=== PATIENT | female | born 1995 | race Caucasian/White ===

== ENCOUNTER 2017-07-10 15:12 | Inpatient (IN) | payer OTHER ==
[2017-07-10 15:43] VITALS: BMI 21.4
--- NOTE | 2017-07-10 17:41 | HP ---
COWS - Scale Resting Pulse: 0= [place] 80 or Below Sweatin= Chills/Flushing Restless Observation: 3= Extraneous Movement Pupil Size: 0= Normal to Room Light Bone or Joint Aches: 2= Severe Diffuse Aches Runny Nose/ Eye Tearin= Runny Nose/Eyes GI Upset > 30mins: 2= Nausea/Diarrhea Tremor Observation: 2= Slight Tremor Visible Yawning Observation: 1= 1-2x During Session Anxiety or Irritability: 2=Irritable/Anxious Goose Flesh Skin: 0=Smooth Skin COWS Score: 15 Admission LOCATED WITHIN [facility] Chief Complaint: WITHDRAWAL SX Allergies/Adverse Reactions: Allergies Allergy/AdvReac Type Severity Reaction Status Date / Time No Known Allergies Allergy Verified 07/10/17 16:05 History of Present Illness: 22 YEARS OLD FEMALE WITH LONG HISTORY OF HEROIN NICOTINE DEPENDENCE HAS DEPRESSION IS ADMITTED TO DETOX Exam Limitations: No Limitations - Ebola screening Have you traveled outside of the country in the last 21 days: No Have you had contact with anyone from an Ebola affected area: No Have you been sick,other than usual withdrawal symptoms: No Do you have a fever: No - Review of Systems Constitutional: Loss of Appetite, Changes in sleep, Unintentional Wgt. Loss, Unexplained wgt Loss EENT: reports: No Symptoms Reported Respiratory: reports: No Symptoms reported Cardiac: reports: No Symptoms Reported GI: reports: Nausea, Poor Appetite, Poor Fluid Intake, Abdominal cramping : reports: No Symptoms Reported Musculoskeletal: reports: Back Pain, Joint Pain, Muscle Pain, Neck Pain Integumentary: reports: No Symptoms Reported Neuro: reports: Tremors Endocrine: reports: No Symptoms Reported Hematology: reports: No Symptoms Reported Psychiatric: reports: Judgement Intact, Orientated x3 Other Systems: Reviewed and Negative Patient History - Patient Medical History Hx Anemia: No Hx Asthma: No Hx Chronic Obstructive Pulmonary Disease (COPD): No Hx Cancer: No Hx Cardiac Disorders: No Hx Congestive Heart Failure: No Hx Hypertension: No Hx Hypercholesterolemia: No Hx Pacemaker: No HX Cerebrovascular Accident: No Hx Seizures: No Hx Dementia: No Hx Diabetes: No Hx Gastrointestinal Disorders: No Hx Liver Disease: No Hx Genitourinary Disorders: No Hx Sexually Transmitted Disorders: No Hx Renal Disease (ESRD): No Hx Thyroid Disease: No Hx Human Immunodeficiency Virus (HIV): No Hx Hepatitis C: No Hx Depression: Yes Hx Suicide Attempt: No Hx Bipolar Disorder: No Hx Schizophrenia: No - Patient Surgical History Past Surgical History: Yes Hx Neurologic Surgery: No Hx Cataract Extraction: No Hx Cardiac Surgery: No Hx Lung Surgery: No Hx Breast Surgery: No Hx Breast Biopsy: No Hx Abdominal Surgery: No Hx Appendectomy: No Hx Cholecystectomy: No Hx Genitourinary Surgery: No Hx Section: No Hx Orthopedic Surgery: No Hx Hysterectomy: No Other Surgical History: tonsilectomy Anesthesia Reaction: No - PPD History Previous Implant?: Yes Documented Results: Negative w/o proof Implanted On Prior [facility] Admission?: No PPD to be Administered?: Yes - Reproductive History Patient is a Female of Child Bearing Age (11 -55 yrs old): Yes Last Menstrual Period: 07/10/16 Patient : No - Smoking Cessation Smoking history: Current every day smoker Have you smoked in the past 12 months: Yes Aproximately how many cigarettes per day: 20 Cigars Per Day: 0 Hx Chewing Tobacco Use: No Initiated information on smoking cessation: Yes 'Breaking Loose' booklet given: 07/10/17 - Substance & Tx. History Hx Alcohol Use: No Hx Substance Use: Yes Substance Use Type: Opiates Hx Substance Use Treatment: Yes (04/2017 [facility]) - Substances Abused Heroin Route: Injection Frequency: Daily Amount used: 10 bags Age of first use: 18 Date of Last Use: 07/10/17 Family Disease History - Family Disease History Family History: Unremarkable Admission Physical Exam BHS - Vital Signs Vital Signs: Vital Signs - 24 hr 07/10/17 15:36 Temperature 96.8 F L Pulse Rate 80 Respiratory 18 Rate Blood Pressure 104/62 - Physical General Appearance: Yes: Appropriately Dressed, Mild Distress, Thin, Tremorous, Irritable, Sweating, Anxious HEENTM: Yes: Hearing grossly Normal, Normal ENT Inspection, Normocephalic, Normal Voice Respiratory: Yes: Chest Non-Tender, Lungs Clear, Normal Breath Sounds, No Respiratory Distress, No Accessory Muscle Use Neck: Yes: Supple, Trachea in good position Breast: Yes: Breasts Symetrical Cardiology: Yes: Regular Rhythm, Regular Rate, S1, S2 Abdominal: Yes: Non Tender, Soft, Increased Bowel Sounds Genitourinary: Yes: Within Normal Limits Back: Yes: Normal Inspection Musculoskeletal: Yes: full range of Motion, Gait Steady, Back pain, Muscle Pain Extremities: Yes: Normal Inspection (OLD PUNCTURE RAMIREZ RIGHT ARM), Normal Range of Motion, Non-Tender, Tremors Neurological: Yes: Fully Oriented, Alert, Motor Strength 5/5, Normal Response, Depressed Affect Integumentary: Yes: Warm Lymphatic: Yes: Within Normal Limits - Diagnostic (1) Opioid dependence with withdrawal Current Visit: Yes Status: Acute (2) Weight loss Current Visit: Yes Status: Acute (3) Nicotine dependence Current Visit: Yes Status: Acute Qualifiers: Nicotine product type: cigarettes Substance use status: in withdrawal Qualified Code(s): F17.213 - Nicotine dependence, cigarettes, with withdrawal (4) Depression (emotion) Current Visit: Yes Status: Suspected Qualifiers: Depression Type: dysthymia Qualified Code(s): F34.1 - Dysthymic disorder Cleared for Admission [facility] - Detox or Rehab [facility] Level of Care: Medically Managed Detox Regimen/Protocol: Methadone [facility] Breath Alcohol Content Breath Alcohol Content: 0 Urine Pregancy Test - Result Urine Test Results: Negative- NO Line Present Urine Drug Screen - Results Drug Screen Negative: No Urine Drug Screen Results: OPI-Opiates
[2017-07-10] MEDS ORDERED: NICOTINE POLACRILEX 4 MG GUM BC PRN (17:43)
[2017-07-10] MEDS ORDERED: MENTHOL/PHENOL 1 EACH UD MM PRN (17:43)
[2017-07-10] MEDS ORDERED: LOPERAMIDE HCL 2 MG CAPSULE PO PRN (17:43)
[2017-07-10] MEDS ORDERED: IBUPROFEN 400 MG TABLET (FP) PO PRN (17:43)
[2017-07-10] MEDS ORDERED: MAGNESIUM CITRATE 300 ML BOTTLE PO PRN (17:43)
[2017-07-10] MEDS ORDERED: guaiFENesin/D-METHORPHAN HB 10 ML UNIT-DOSE CUPS PO PRN (17:43)
[2017-07-10] MEDS ORDERED: ACETAMINOPHEN 325 MG TABLET (FP) PO PRN (17:43)
[2017-07-10] MEDS ORDERED: P-EPHED 60MG/TRIPROLIDI 2.5MG TABLET PO PRN (17:43)
[2017-07-10] MEDS ORDERED: MAG HYDROX/AL HYDROX/SIMETH 30 ML UNIT-DOSE CUP PO PRN (17:43)
[2017-07-10] MEDS ORDERED: MAGNESIUM HYDROX 2400MG/30ML ORAL SUSPENSION 30 ML CUP PO PRN (17:43)
[2017-07-10] MEDS: diazePAM 5 MG TABLET PO PRN (19:57)
[2017-07-10] MEDS ORDERED: METHADONE HCL 10 MG TABLET (FOR DETOX USE ONLY) PO ONE ×2 (20:00→23:00)
[2017-07-10] MEDS: THIAMINE HCL 100 MG TABLET (FP) PO SCH (22:13)
[2017-07-10 23:47] LABS: URINE APPEARANCE CLOUDY; URINE BILIRUBIN NEGATIVE (NEGATIVE); URINE BLOOD NEGATIVE (NEGATIVE); URINE COLOR YELLOW; URINE GLUCOSE (UA) NEGATIVE (NEGATIVE); URINE KETONE NEGATIVE (NEGATIVE); URINE NITRITE NEGATIVE (NEGATIVE); URINE PROTEIN NEGATIVE (NEGATIVE); URINE UROBILINOGEN NEGATIVE mg/dL (0.2-1.0)
[2017-07-10 23:49] LABS: URINE LEUK ESTERASE 1+ (NEGATIVE)
[2017-07-11 01:18] LABS: EPI CELLS MODERATE /HPF (FEW); URINE BACTERIA RARE /hpf (NONE SEEN); URINE MUCUS RARE
--- NOTE | 2017-07-11 08:06 | CONSULT ---
[facility] Psychiatric Consult - Data Date of interview: 07/11/17 Admission source: [facility] Identifying data: This is 22 years old female with no psychiatric hospitalization history intoxicated with: Opiopids and Nicotine Substance Abuse History: Smoking history: Current every day smoker. Have you smoked in the past 12 months: Yes. Aproximately how many cigarettes per day: 20. Cigars Per Day: 0. Hx Chewing Tobacco Use: No. Initiated information on smoking cessation: Yes. 'Breaking Loose' booklet given: 07/10/17. - Substance & Tx. History. Hx Alcohol Use: No. Hx Substance Use: Yes. Substance Use Type : Opiates. Hx Substance Use Treatment: Yes (04/2017 [facility]). - Substances Abused. Heroin. Route: Injection. Frequency: Daily. Amount used: 10 bags. Age of first use: 18. Date of Last Use: 07/10/17 Medical History: Weight loss Psychiatric History: Patient reports unclear history of depression, denies suicidal history, reports taking in the past : Wellbutrin, Lamictal, Prozac, Gabapentine, reports did not taking those medications at this time, refusing pharmacological intervention Physical/Sexual Abuse/Trauma History: Denies Additional Comment: Observation. Detox Unit Cart Protocol Mental Status Exam - Mental Status Exam Alert and Oriented to: Person Cognitive Function: Fair Patient Appearance: Unkempt Mood: Apprehensive Affect: Mood Congruent Patient Behavior: Cooperative Voice Loudness: Mildly Soft/Quiet Thought Process: Goal Oriented Thought Disorder: Being Controlled Hallucinations: Denies Suicidal Ideation: Denies Homicidal Ideation: Denies Insight/Judgement: Fair Sleep: Difficulty falling asleep Appetite: Weight loss Muscle strength/Tone: Normal Gait/Station: Normal Additional Comments: Observation. Detox Unit Cart Protocol Psychiatric Findings - Problem List ([place] 1, 2,3) (1) Drug-induced mood disorder Current Visit: Yes Status: Acute (2) Nicotine dependence Current Visit: Yes Status: Acute Qualifiers: Nicotine product type: cigarettes Substance use status: in withdrawal Qualified Code(s): F17.213 - Nicotine dependence, cigarettes, with withdrawal (3) Opioid dependence with withdrawal Current Visit: Yes Status: Acute - Initial Treatment Plan Initial Treatment Plan: Observation. Detox Unit Cart Protocol
[2017-07-11 09:46] LABS: ALBUMIN 3.2 g/dl (3.4-5.0); ANION GAP 4 (8-16); BLOOD UREA NITROGEN 10 mg/dL (7-18); CHLORIDE 107 mmol/L (98-107); CO2 29 mmol/L (21-32); GLUCOSE,RANDOM 86 mg/dL (74-106); POTASSIUM 4.3 mmol/L (3.5-5.1); SGOT/AST 10 U/L (15-37); SGPT/ALT 15 U/L (12-78); SODIUM 140 mmol/L (136-145)
[2017-07-11 09:48] LABS: ALK PHOS 92 U/L (45-117); BILIRUBIN,TOTAL 0.3 mg/dL (0.2-1.0); CALCIUM 8.8 mg/dL (8.5-10.1); CREATININE 0.7 mg/dL (0.55-1.02); TOT PROT 6.3 g/dl (6.4-8.2)
[2017-07-11] MEDS ORDERED: METHADONE HCL 10 MG TABLET (FOR DETOX USE ONLY) PO ONE (10:00)
[2017-07-11] MEDS: PRENATAL VITAMINS W/ FOLIC ACID TABLET (FP) PO SCH (10:15)
[2017-07-11] MEDS: NICOTINE 21 MG/24 HOURS TOPICAL PATCH TD SCH (10:17)
[2017-07-11 10:21] LABS: HEMATOCRIT 40.8 % (32.4-45.2); HEMOGLOBIN 13.1 GM/dL (10.7-15.3); MCH 28.5 pg (25.7-33.7); MCHC 32.2 g/dl (32.0-36.0); MEAN CELL VOLUME 88.3 fl (80-96); MEAN PLT VOLUME 7.8 fl (7.5-11.1); PLATELET COUNT 238 K/MM3 (134-434); RBC 4.62 M/mm3 (3.60-5.2); RDW 13.6 % (11.6-15.6); WHITE BLOOD COUNT 7.9 K/mm3 (4.0-10.0)
--- NOTE | 2017-07-11 10:36 | PN ---
BHS COWS - Scale Resting Pulse: 0= [place] 80 or Below Sweatin=Flushed/Facial Moisture Restless Observation: 1= Difficult to Sit Still Pupil Size: 0= Normal to Room Light Bone or Joint Aches: 2= Severe Diffuse Aches Runny Nose/ Eye Tearin= Runny Nose/Eyes GI Upset > 30mins: 1= Stomach Cramp Tremor Observation of Outstretched Hands: 2= Slight Tremor Visible Yawning Observation: 2= >3x During Session Anxiety or Irritability: 2=Irritable/Anxious Goose Flesh Skin: 0=Smooth Skin COWS Score: 14 BHS Progress Note (SOAP) Subjective: interrupted sleep agitation sweats body aches irritable Objective: 07/11/17 10:35 Vital Signs Temperature 97.7 F 07/11/17 04:00 Pulse Rate 55 L 07/11/17 04:00 Respiratory Rate 18 07/11/17 04:00 Blood Pressure 101/67 07/11/17 04:00 O2 Sat by Pulse Oximetry (%) Laboratory Tests 07/10/17 07/11/17 07/11/17 Unknown 07:00 07:00 WBC 7.9 RBC 4.62 Hgb 13.1 Hct 40.8 MCV 88.3 MCH 28.5 MCHC 32.2 RDW 13.6 Plt Count 238 MPV 7.8 Sodium 140 Potassium 4.3 Chloride 107 Carbon Dioxide 29 Anion Gap 4 L BUN 10 Creatinine 0.7 Creat Clearance w eGFR > 60 Random Glucose 86 Calcium 8.8 Total Bilirubin 0.3 AST 10 L ALT 15 Alkaline Phosphatase 92 Total Protein 6.3 L Albumin 3.2 L Urine Color Yellow Urine Appearance Cloudy Urine pH 7.0 Ur Specific [place] 1.011 Urine Protein Negative Urine Glucose (UA) Negative Urine Ketones Negative Urine Blood Negative Urine Nitrite Negative Urine Bilirubin Negative Urine Urobilinogen Negative Urine WBC (Auto) 17 Urine RBC (Auto) <1 Ur Epithelial Cells Moderate Urine Bacteria Rare Urine Mucus Rare aaox3 ambulating no acute distress Assessment: 07/11/17 10:36 withdrawal sx Plan: continue detox increase fluids
--- NOTE | 2017-07-11 12:34 | EKG ---
Test Reason : Blood Pressure : / mmHG Vent. Rate : 061 BPM Atrial Rate : 061 BPM P-R Int : 132 ms QRS Dur : 082 ms QT Int : 402 ms P-R-T Axes : 043 048 043 degrees QTc Int : 404 ms NORMAL SINUS RHYTHM WITH SINUS ARRHYTHMIA NORMAL ECG NO PREVIOUS ECGS AVAILABLE Confirmed by LAYO LUNA, ROSE ([id number]) on 07/11/2017 12:34:19 PM Referred By: Payal Cortez Confirmed By:ROSE VASQUES MD
--- NOTE | 2017-07-11 12:35 | EKG ---
Test Reason : Blood Pressure : / mmHG Vent. Rate : 063 BPM Atrial Rate : 063 BPM P-R Int : 148 ms QRS Dur : 074 ms QT Int : 400 ms P-R-T Axes : 038 052 039 degrees QTc Int : 409 ms NORMAL SINUS RHYTHM WITH SINUS ARRHYTHMIA LOW VOLTAGE QRS BORDERLINE ECG WHEN COMPARED WITH ECG OF 10-JUL-2017 19:46, NO SIGNIFICANT CHANGE WAS FOUND Confirmed by LAYO LUNA, ROSE ([id number]) on 07/11/2017 12:34:24 PM Referred By: Payal Cortez Confirmed By:ROSE VASQUES MD
[2017-07-11] MEDS: diazePAM 5 MG TABLET PO PRN ×2 (17:17→22:16)
[2017-07-11] MEDS: THIAMINE HCL 100 MG TABLET (FP) PO SCH (22:16)
[2017-07-12] MEDS ORDERED: METHADONE HCL 5 MG TABLET (FOR DETOX USE ONLY) PO ONE (10:00)
[2017-07-12] MEDS: PRENATAL VITAMINS W/ FOLIC ACID TABLET (FP) PO SCH (10:13)
[2017-07-12] MEDS: NICOTINE 21 MG/24 HOURS TOPICAL PATCH TD SCH (10:13)
[2017-07-12] MEDS: diazePAM 5 MG TABLET PO PRN ×3 (10:15→22:05)
--- NOTE | 2017-07-12 10:35 | PN ---
S COWS - Scale Resting Pulse: 0= [place] 80 or Below Sweatin=Flushed/Facial Moisture Restless Observation: 1= Difficult to Sit Still Pupil Size: 0= Normal to Room Light Bone or Joint Aches: 2= Severe Diffuse Aches Runny Nose/ Eye Tearin= Runny Nose/Eyes GI Upset > 30mins: 0= None Tremor Observation of Outstretched Hands: 1= Tremor [place], Not Seen Yawning Observation: 2= >3x During Session Anxiety or Irritability: 2=Irritable/Anxious Goose Flesh Skin: 0=Smooth Skin COWS Score: 12 S Progress Note (SOAP) Subjective: anxiety sweats chills body aches Objective: 07/12/17 10:33 Vital Signs Temperature 97.0 F L 07/12/17 09:40 Pulse Rate 70 07/12/17 09:40 Respiratory Rate 16 07/12/17 09:40 Blood Pressure 103/57 07/12/17 09:40 O2 Sat by Pulse Oximetry (%) Laboratory Tests 07/10/17 07/10/17 07/11/17 07:00 Unknown 07:00 WBC RBC Hgb Hct MCV MCH MCHC RDW Plt Count MPV Sodium Potassium Chloride Carbon Dioxide Anion Gap BUN Creatinine Creat Clearance w eGFR Random Glucose Calcium Total Bilirubin AST ALT Alkaline Phosphatase Total Protein Albumin Urine Color Yellow Urine Appearance Cloudy Urine pH 7.0 Ur Specific [place] 1.011 Urine Protein Negative Urine Glucose (UA) Negative Urine Ketones Negative Urine Blood Negative Urine Nitrite Negative Urine Bilirubin Negative Urine Urobilinogen Negative Ur Leukocyte Esterase 1+ H Urine WBC (Auto) 17 Urine RBC (Auto) <1 Ur Epithelial Cells Moderate Urine Bacteria Rare Urine Mucus Rare RPR Titer Hepatitis C Antibody <0.1 HIV 1&2 Antibody Screen Negative HIV P24 Antigen Negative 07/11/17 07/11/17 07/11/17 07:00 07:00 07:00 WBC 7.9 RBC 4.62 Hgb 13.1 Hct 40.8 MCV 88.3 MCH 28.5 MCHC 32.2 RDW 13.6 Plt Count 238 MPV 7.8 Sodium 140 Potassium 4.3 Chloride 107 Carbon Dioxide 29 Anion Gap 4 L BUN 10 Creatinine 0.7 Creat Clearance w eGFR > 60 Random Glucose 86 Calcium 8.8 Total Bilirubin 0.3 AST 10 L ALT 15 Alkaline Phosphatase 92 Total Protein 6.3 L Albumin 3.2 L Urine Color Urine Appearance Urine pH Ur Specific [place] Urine Protein Urine Glucose (UA) Urine Ketones Urine Blood Urine Nitrite Urine Bilirubin Urine Urobilinogen Ur Leukocyte Esterase Urine WBC (Auto) Urine RBC (Auto) Ur Epithelial Cells Urine Bacteria Urine Mucus RPR Titer Nonreactive Hepatitis C Antibody HIV 1&2 Antibody Screen HIV P24 Antigen aaox3 ambulating no acute distress Assessment: 07/12/17 10:34 withdrawal sx Plan: continue detox increase fluids
[2017-07-12] MEDS: THIAMINE HCL 100 MG TABLET (FP) PO SCH (22:05)
[2017-07-13] MEDS ORDERED: METHADONE HCL 5 MG TABLET (FOR DETOX USE ONLY) PO ONE (10:00)
[2017-07-13] MEDS: diazePAM 5 MG TABLET PO PRN ×2 (10:32→17:51)
[2017-07-13] MEDS: PRENATAL VITAMINS W/ FOLIC ACID TABLET (FP) PO SCH (10:32)
[2017-07-13] MEDS: NICOTINE 21 MG/24 HOURS TOPICAL PATCH TD SCH (10:33)
--- NOTE | 2017-07-13 11:52 | PN ---
BHS Progress Note (SOAP) Subjective: ALERT,IRRITABLE,ANXIOUS,INTERRUPTED SLEEP,PAIN IN THE BODY Objective: 07/13/17 11:51 Vital Signs Temperature 96 F L 07/13/17 10:18 Pulse Rate 78 07/13/17 10:18 Respiratory Rate 18 07/13/17 10:18 Blood Pressure 103/63 07/13/17 10:18 O2 Sat by Pulse Oximetry (%) Assessment: 07/13/17 11:51 WITHDRAWAL SYMPTOM Plan: CONTINUE DETOX
[2017-07-13] MEDS: THIAMINE HCL 100 MG TABLET (FP) PO SCH (22:28)
[2017-07-14] MEDS ORDERED: METHADONE HCL 10 MG TABLET (FOR DETOX USE ONLY) PO ONE (10:00)
[2017-07-14] MEDS: PRENATAL VITAMINS W/ FOLIC ACID TABLET (FP) PO SCH (10:19)
[2017-07-14] MEDS: NICOTINE 21 MG/24 HOURS TOPICAL PATCH TD SCH (10:19)
--- NOTE | 2017-07-14 12:44 | PN ---
BHS Progress Note (SOAP) Subjective: general body ache irritable unable to sleep throughout the night Objective: 07/14/17 12:43 Vital Signs Temperature 96.6 F L 07/14/17 10:00 Pulse Rate 90 07/14/17 10:00 Respiratory Rate 18 07/14/17 10:00 Blood Pressure 114/64 07/14/17 10:00 O2 Sat by Pulse Oximetry (%) Laboratory Last Values WBC 7.9 K/mm3 (4.0-10.0) 07/11/17 07:00 RBC 4.62 M/mm3 (3.60-5.2) 07/11/17 07:00 Hgb 13.1 GM/dL (10.7-15.3) 07/11/17 07:00 Hct 40.8 % (32.4-45.2) 07/11/17 07:00 MCV 88.3 fl (80-96) 07/11/17 07:00 MCH 28.5 pg (25.7-33.7) 07/11/17 07:00 MCHC 32.2 g/dl (32.0-36.0) 07/11/17 07:00 RDW 13.6 % (11.6-15.6) 07/11/17 07:00 Plt Count 238 K/MM3 (134-434) 07/11/17 07:00 MPV 7.8 fl (7.5-11.1) 07/11/17 07:00 Sodium 140 mmol/L (136-145) 07/11/17 07:00 Potassium 4.3 mmol/L (3.5-5.1) 07/11/17 07:00 Chloride 107 mmol/L (98-107) 07/11/17 07:00 Carbon Dioxide 29 mmol/L (21-32) 07/11/17 07:00 Anion Gap 4 (8-16) L 07/11/17 07:00 BUN 10 mg/dL (7-18) 07/11/17 07:00 Creatinine 0.7 mg/dL (0.55-1.02) 07/11/17 07:00 Creat Clearance w eGFR > 60 (>60) 07/11/17 07:00 Random Glucose 86 mg/dL (74-106) 07/11/17 07:00 Calcium 8.8 mg/dL (8.5-10.1) 07/11/17 07:00 Total Bilirubin 0.3 mg/dL (0.2-1.0) 07/11/17 07:00 AST 10 U/L (15-37) L 07/11/17 07:00 ALT 15 U/L (12-78) 07/11/17 07:00 Alkaline Phosphatase 92 U/L (45-117) 07/11/17 07:00 Total Protein 6.3 g/dl (6.4-8.2) L 07/11/17 07:00 Albumin 3.2 g/dl (3.4-5.0) L 07/11/17 07:00 Urine Color Yellow 07/10/17 Unknown Urine Appearance Cloudy 07/10/17 Unknown Urine pH 7.0 (5.0-8.0) 07/10/17 Unknown Ur Specific [place] 1.011 (1.001-1.035) 07/10/17 Unknown Urine Protein Negative (NEGATIVE) 07/10/17 Unknown Urine Glucose (UA) Negative (NEGATIVE) 07/10/17 Unknown Urine Ketones Negative (NEGATIVE) 07/10/17 Unknown Urine Blood Negative (NEGATIVE) 07/10/17 Unknown Urine Nitrite Negative (NEGATIVE) 07/10/17 Unknown Urine Bilirubin Negative (NEGATIVE) 07/10/17 Unknown Urine Urobilinogen Negative mg/dL (0.2-1.0) 07/10/17 Unknown Ur Leukocyte Esterase 1+ (NEGATIVE) H 07/10/17 Unknown Urine WBC (Auto) 17 /hpf (3-5) 07/10/17 Unknown Urine RBC (Auto) <1 /hpf (0-3) 07/10/17 Unknown Ur Epithelial Cells Moderate /HPF (FEW) 07/10/17 Unknown Urine Bacteria Rare /hpf (NONE SEEN) 07/10/17 Unknown Urine Mucus Rare 07/10/17 Unknown RPR Titer Nonreactive (NONREACTIVE) 07/11/17 07:00 Hepatitis C Antibody <0.1 s/co ratio (0.0-0.9) 07/10/17 07:00 HIV 1&2 Antibody Screen Negative 07/11/17 07:00 HIV P24 Antigen Negative 07/11/17 07:00 lab noted Assessment: 07/14/17 12:43 withdrawal sx Plan: continue detox
[2017-07-14] MEDS: THIAMINE HCL 100 MG TABLET (FP) PO SCH (22:20)
[2017-07-15] MEDS ORDERED: METHADONE HCL 5 MG TABLET (FOR DETOX USE ONLY) PO ONE (06:00)
--- NOTE | 2017-07-15 09:19 | DS ---
[facility] Detox Discharge Summary Admission Date: 07/10/17 Discharge Date: 07/15/17 - History Present History: Opioid Dependence - Physical Exam Results Vital Signs: Vital Signs Temperature 97.2 F L 07/15/17 06:10 Pulse Rate 65 07/15/17 06:10 Respiratory Rate 16 07/15/17 06:10 Blood Pressure 94/60 07/15/17 06:10 O2 Sat by Pulse Oximetry (%) - Treatment Hospital Course: Detox Protocol Followed, Detoxed Safely, Responded well, Discharged Condition Good, Rehab Referral Accepted - Medication Discharge Medications: Ambulatory Orders NK [No Known Home Medication] 07/10/17 - Diagnosis (1) Drug-induced mood disorder Current Visit: Yes Status: Chronic (2) Nicotine dependence Current Visit: Yes Status: Acute Qualifiers: Nicotine product type: cigarettes Substance use status: uncomplicated Qualified Code(s): F17.210 - Nicotine dependence, cigarettes, uncomplicated (3) Opioid dependence with withdrawal Current Visit: Yes Status: Chronic (4) Weight loss Current Visit: Yes Status: Acute (5) Depression (emotion) Current Visit: Yes Status: Suspected Qualifiers: Depression Type: dysthymia Qualified Code(s): F34.1 - Dysthymic disorder - AMA Did Patient Leave Against Medical Advice: No (going home)
[2017-07-15 11:02] VITALS: BP 104/49; PULSE 77; TEMP 96.8
== END 2017-07-15 09:30 | disposition home or self-care (01) | DRG 773 ==
LOC: YASAS 15:12 → Y6N 19:17
PROVIDERS: ADMIT Internal Medicine; ATTEND Internal Medicine
PROC: HZ2ZZZZ Detoxification Services for Substance Abuse Treatment (ICD-10-PCS; principal; 2017-07-10)
DX: F11.23 Opioid dependence with withdrawal (principal); F17.210 Nicotine dependence, cigarettes, uncomplicated; F19.24 Other psychoactive substance dependence with psychoactive substance-induced mood disorder; F34.1 Dysthymic disorder; R63.4 Abnormal weight loss; Z68.21 Body mass index [BMI] 21.0-21.9, adult
CPT/HCPCS: 36415; 80053; 81003; 81015; 85027; 86593; 86803; 87389; 93005; 93010

== ENCOUNTER 2017-09-06 10:54 | Inpatient (IN) | payer OTHER ==
[2017-09-06 11:33] VITALS: BMI 20.5
--- NOTE | 2017-09-06 14:42 | HP ---
COWS - Scale Resting Pulse: 1= [place] 81-100 Sweatin=Flushed/Facial Moisture Restless Observation: 1= Difficult to Sit Still Pupil Size: 0= Normal to Room Light Bone or Joint Aches: 2= Severe Diffuse Aches Runny Nose/ Eye Tearin= Runny Nose/Eyes GI Upset > 30mins: 0= None Tremor Observation: 2= Slight Tremor Visible Yawning Observation: 2= >3x During Session Anxiety or Irritability: 1=Feels Anxious/Irritable Goose Flesh Skin: 3=Piloerection COWS Score: 16 Admission ROS S - HPI Chief Complaint: I am here to go to detox. Allergies/Adverse Reactions: Allergies Allergy/AdvReac Type Severity Reaction Status Date / Time No Known Allergies Allergy Verified 09/06/17 14:25 History of Present Illness: pt is a 22yr old female with a history of heroin dependence seeking detox for treatment. Exam Limitations: No Limitations - Ebola screening Have you traveled outside of the country in the last 21 days: No Have you had contact with anyone from an Ebola affected area: No Have you been sick,other than usual withdrawal symptoms: No Do you have a fever: No - Review of Systems Constitutional: Chills, Diaphoresis EENT: reports: Tearing, Nose Congestion Respiratory: reports: No Symptoms reported Cardiac: reports: Lightheadedness GI: reports: Constipated, Diarrhea, Poor Appetite, Poor Fluid Intake : reports: No Symptoms Reported Musculoskeletal: reports: Back Pain Integumentary: reports: Bruising, Flushing, Sweating Neuro: reports: Headache, Tingling, Tremors Endocrine: reports: Excessive Sweating, Flushing, Intolerance to Cold, Intolerance to Heat Hematology: reports: No Symptoms Reported Psychiatric: reports: Judgement Intact, Mood/Affect Appropiate, Orientated x3, Agitated, Anxious Other Systems: Reviewed and Negative Patient History - Patient Medical History Hx Anemia: No Hx Asthma: No Hx Chronic Obstructive Pulmonary Disease (COPD): No Hx Cancer: No Hx Cardiac Disorders: No Hx Congestive Heart Failure: No Hx Hypertension: No Hx Hypercholesterolemia: No Hx Pacemaker: No HX Cerebrovascular Accident: No Hx Seizures: No Hx Dementia: No Hx Diabetes: No Hx Gastrointestinal Disorders: No Hx Liver Disease: No Hx Genitourinary Disorders: No Hx Sexually Transmitted Disorders: No Hx Renal Disease (ESRD): No Hx Thyroid Disease: No Hx Human Immunodeficiency Virus (HIV): No Hx Hepatitis C: No Hx Depression: Yes Hx Suicide Attempt: No Hx Bipolar Disorder: No Hx Schizophrenia: No - Patient Surgical History Past Surgical History: Yes Hx Neurologic Surgery: No Hx Cataract Extraction: No Hx Cardiac Surgery: No Hx Lung Surgery: No Hx Breast Surgery: No Hx Breast Biopsy: No Hx Abdominal Surgery: No Hx Appendectomy: No Hx Cholecystectomy: No Hx Genitourinary Surgery: No Hx Section: No Hx Orthopedic Surgery: No Hx Hysterectomy: No Other Surgical History: tonsilectomy Anesthesia Reaction: No - PPD History Previous Implant?: Yes Documented Results: Negative w/proof Implanted On Prior [facility] Admission?: Yes Date: 07/12/17 Results: 0 mm - Reproductive History Last Menstrual Period: 07/10/16 Patient : No - Smoking Cessation Smoking history: Current every day smoker Have you smoked in the past 12 months: Yes Aproximately how many cigarettes per day: 20 Cigars Per Day: 0 Hx Chewing Tobacco Use: No Initiated information on smoking cessation: Yes 'Breaking Loose' booklet given: 09/06/17 - Substance & Tx. History Hx Alcohol Use: No Hx Substance Use: Yes Substance Use Type: Heroin Hx Substance Use Treatment: Yes ([facility] 2018) - Substances Abused Heroin Route: Inhalation Frequency: Daily Amount used: 3-5 bags Age of first use: 18 Date of Last Use: 09/06/17 Family Disease History - Family Disease History Family History: Denies Admission Physical Exam BHS - Vital Signs Vital Signs: Vital Signs - 24 hr 09/06/17 09/06/17 11:32 12:36 Temperature 97.9 F 97.9 F Pulse Rate 91 H 91 H Respiratory 16 16 Rate Blood Pressure 94/55 94/55 - Physical General Appearance: Yes: Appropriately Dressed, Moderate Distress, Tremorous, Irritable, Sweating, Anxious HEENTM: Yes: Normal Voice, Rhinorrhea Respiratory: Yes: Lungs Clear, Normal Breath Sounds, No Respiratory Distress Neck: Yes: No masses,lesions,Nodules Breast: Yes: Within Normal Limits Cardiology: Yes: Regular Rhythm, Regular Rate, S1, S2 Abdominal: Yes: Normal Bowel Sounds, Non Tender, Flat Genitourinary: Yes: Within Normal Limits Back: Yes: Normal Inspection Musculoskeletal: Yes: full range of Motion, Back pain Extremities: Yes: Normal Capillary Refill, Tremors Neurological: Yes: Fully Oriented, Alert, Normal Response Integumentary: Yes: Normal Color, Diaphoresis Lymphatic: Yes: Within Normal Limits - Diagnostic (1) Nicotine dependence Current Visit: Yes Status: Chronic Qualifiers: Nicotine product type: cigarettes Substance use status: uncomplicated Qualified Code(s): F17.210 - Nicotine dependence, cigarettes, uncomplicated (2) Opioid dependence with withdrawal Current Visit: Yes Status: Chronic Cleared for Admission [facility] - Detox or Rehab [facility] Level of Care: Medically Managed Detox Regimen/Protocol: Methadone [facility] Breath Alcohol Content Breath Alcohol Content: 0 Urine Pregancy Test - Result Urine Test Results: Negative- NO Line Present Urine Drug Screen - Results Drug Screen Negative: No Urine Drug Screen Results: JANET-Cocaine, AMP-Amphetamines, OXY-Oxycodone
[2017-09-06] MEDS ORDERED: guaiFENesin/D-METHORPHAN HB 10 ML UNIT-DOSE CUPS PO PRN (14:50)
[2017-09-06] MEDS ORDERED: NICOTINE POLACRILEX 4 MG GUM BC PRN (14:50)
[2017-09-06] MEDS ORDERED: MAGNESIUM HYDROX 2400MG/30ML ORAL SUSPENSION 30 ML CUP PO PRN (14:50)
[2017-09-06] MEDS ORDERED: MAGNESIUM CITRATE 300 ML BOTTLE PO PRN (14:50)
[2017-09-06] MEDS ORDERED: P-EPHED 60MG/TRIPROLIDI 2.5MG TABLET PO PRN (14:50)
[2017-09-06] MEDS ORDERED: MAG HYDROX/AL HYDROX/SIMETH 30 ML UNIT-DOSE CUP PO PRN (14:50)
[2017-09-06] MEDS ORDERED: IBUPROFEN 400 MG TABLET (FP) PO PRN (14:50)
[2017-09-06] MEDS ORDERED: MENTHOL/PHENOL 1 EACH UD MM PRN (14:50)
[2017-09-06] MEDS ORDERED: ACETAMINOPHEN 325 MG TABLET (FP) PO PRN (14:50)
[2017-09-06] MEDS ORDERED: LOPERAMIDE HCL 2 MG CAPSULE PO PRN (14:50)
[2017-09-06] MEDS ORDERED: METHADONE HCL 10 MG TABLET (FOR DETOX USE ONLY) PO ONE ×2 (16:30→23:00)
[2017-09-06] MEDS: diazePAM 5 MG TABLET PO PRN ×2 (17:16→22:31)
[2017-09-06] MEDS: THIAMINE HCL 100 MG TABLET (FP) PO SCH (22:31)
[2017-09-06 22:38] LABS: URINE APPEARANCE TURBID; URINE BILIRUBIN NEGATIVE (NEGATIVE); URINE BLOOD 1+ (NEGATIVE); URINE COLOR AMBER; URINE GLUCOSE (UA) NEGATIVE (NEGATIVE); URINE KETONE NEGATIVE (NEGATIVE); URINE NITRITE POSITIVE (NEGATIVE); URINE PROTEIN NEGATIVE (NEGATIVE)
[2017-09-06 22:43] LABS: URINE LEUK ESTERASE 2+ (NEGATIVE)
[2017-09-06 22:45] LABS: EPI CELLS RARE /HPF (FEW); URINE BACTERIA MODERATE /hpf (NONE SEEN); URINE MUCUS MANY
[2017-09-07] MEDS ORDERED: METHADONE HCL 10 MG TABLET (FOR DETOX USE ONLY) PO ONE (10:00)
[2017-09-07] MEDS: PRENATAL VITAMINS W/ FOLIC ACID TABLET (FP) PO SCH (10:16)
[2017-09-07] MEDS: diazePAM 5 MG TABLET PO PRN ×2 (10:16→22:21)
[2017-09-07] MEDS: NICOTINE 21 MG/24 HOURS TOPICAL PATCH TD SCH (10:16)
[2017-09-07 11:12] LABS: CHLORIDE 105 mmol/L (98-107); POTASSIUM 4.2 mmol/L (3.5-5.1); SODIUM 139 mmol/L (136-145)
[2017-09-07 11:13] LABS: HEMATOCRIT 39.5 % (32.4-45.2); HEMOGLOBIN 13.5 GM/dL (10.7-15.3); MCH 29.8 pg (25.7-33.7); MCHC 34.2 g/dl (32.0-36.0); MEAN CELL VOLUME 87.4 fl (80-96); MEAN PLT VOLUME 7.9 fl (7.5-11.1); PLATELET COUNT 279 K/MM3 (134-434); RBC 4.52 M/mm3 (3.60-5.2); RDW 13.7 % (11.6-15.6); WHITE BLOOD COUNT 8.2 K/mm3 (4.0-10.0)
[2017-09-07 11:19] LABS: ALBUMIN 3.8 g/dl (3.4-5.0); ALK PHOS 96 U/L (45-117); ANION GAP 6 (8-16); BILIRUBIN,TOTAL 0.3 mg/dL (0.2-1.0); BLOOD UREA NITROGEN 9 mg/dL (7-18); CALCIUM 8.8 mg/dL (8.5-10.1); CO2 28 mmol/L (21-32); CREATININE 0.7 mg/dL (0.55-1.02); GLUCOSE,RANDOM 88 mg/dL (74-106); SGOT/AST 14 U/L (15-37); SGPT/ALT 12 U/L (12-78); TOT PROT 7.1 g/dl (6.4-8.2)
--- NOTE | 2017-09-07 11:56 | EKG ---
Test Reason : Blood Pressure : / mmHG Vent. Rate : 066 BPM Atrial Rate : 066 BPM P-R Int : 138 ms QRS Dur : 086 ms QT Int : 406 ms P-R-T Axes : 040 018 024 degrees QTc Int : 425 ms NORMAL SINUS RHYTHM NORMAL ECG WHEN COMPARED WITH ECG OF 11-JUL-2017 09:16, T WAVE INVERSION NOW EVIDENT IN ANTERIOR LEADS Confirmed by MD NATAN, OSIRIS ([id number]) on 09/07/2017 11:55:56 AM Referred By: Confirmed By:OSIRIS GAMA MD
--- NOTE | 2017-09-07 14:13 | PN ---
S CIWA - CIWA Score Nausea/Vomitin Muscle Tremors: 3 Anxiety: 3 Agitation: 3 Paroxysmal Sweats: 1-Minimal Palms Moist Orientation: 0-Oriented Tacttile Disturbances: 1-Very Mild Itch/Numbness Auditory Disturbances: 1-Very Mild Visual Disturbances: 0-None Headache: 2-Mild CIWA-Ar Total Score: 17 BHS Progress Note (SOAP) Subjective: ALERT,IRRITABLE,ANXIOUS,INTERRUPTED SLEEP,PAIN IN THE BODY AND BACK Objective: 09/07/17 14:11 Vital Signs Temperature 97.7 F 09/07/17 11:46 Pulse Rate 88 09/07/17 11:46 Respiratory Rate 18 09/07/17 11:46 Blood Pressure 106/54 09/07/17 11:46 O2 Sat by Pulse Oximetry (%) EKG NSR,NORMAL 09/07/17 09/07/17 05:40 05:40 WBC 8.2 RBC 4.52 Hgb 13.5 Hct 39.5 MCV 87.4 MCHC 34.2 RDW 13.7 Plt Count 279 Sodium 139 Potassium 4.2 Chloride 105 Carbon Dioxide 28 Anion Gap 6 L BUN 9 Creatinine 0.7 ECG 09/07/17 14:12 LABS PENDING Assessment: 09/07/17 14:13 WITHDRAWAL SYMPTOM Plan: CONTINUE DETOX
--- NOTE | 2017-09-07 16:58 | CONSULT ---
[facility] Psychiatric Consult - Data Date of interview: 09/07/17 Admission source: [facility] Identifying data: Readmission to [facility] for this 22 y/o female seeking detox treatment on for heroin dependence (toxicology is positive for cocaine).Patient is single without children,domiciled (lives with her parents),unemployed and dependent on parental assistance. Substance Abuse History: Confirmed by patient. Ms Rose admits to daily use of heroin and occasional exposure to cocaine. Smoking Cessation. Smoking history: Current every day smoker. Have you smoked in the past 12 months: Yes. Aproximately how many cigarettes per day: 20. Cigars Per Day: 0. Hx Chewing Tobacco Use: No. Initiated information on smoking cessation: Yes. 'Breaking Loose' booklet given: 09/06/17. - Substance & Tx. History. Hx Alcohol Use: No. Hx Substance Use: Yes. Substance Use Type: Heroin. Hx Substance Use Treatment: Yes ([facility] 2018). - Substances Abused. Heroin. Route: Inhalation. Frequency: Daily. Amount used: 3-5 bags. Age of first use: 18. Date of Last Use: 09/06/17 Medical History: Patient endorses good general health. Psychiatric History: No reported history of psychiatric hospitalizations.Patient declares that she used to be under the care of a private psychiatrist,Dr Palafox,in the [place].Diagnosed with Bipolar Disorder and MDD.Past history of maintenance on lamotrigine,wellbutrin,gabapentin,fluoxetine and mirtazapine.Stopped taking these medications for " a little over a year ", according to own account.Has not kept her appointments with her psychiatrist for weeks.Patient denies history of suicide attempts. Physical/Sexual Abuse/Trauma History: Patient denies. Additional Comment: Urine Drug Screen Results: JANET-Cocaine, AMP-Amphetamines, OXY-Oxycodone.Noted. Mental Status Exam - Mental Status Exam Alert and Oriented to: Time, Place, Person Cognitive Function: Good Patient Appearance: Well Groomed (small stature ; thin habitus and appearing much younger than stated age) Mood: Hopeful, Euthymic Affect: Appropriate, Normal Range Patient Behavior: Appropriate, Cooperative Speech Pattern: Clear, Appropriate Voice Loudness: Normal Thought Process: Intact, Goal Oriented Thought Disorder: Not Present Hallucinations: Denies Suicidal Ideation: Denies Homicidal Ideation: Denies Insight/Judgement: Poor Sleep: Poorly, Difficulty falling asleep (wants remeron) Appetite: Good Muscle strength/Tone: Normal Gait/Station: Normal Psychiatric Findings - Problem List ([place] 1, 2,3) (1) Opioid dependence with withdrawal Status: Acute (2) Cocaine abuse Status: Acute (3) Nicotine dependence Status: Acute Qualifiers: Nicotine product type: cigarettes Substance use status: in withdrawal Qualified Code(s): F17.213 - Nicotine dependence, cigarettes, with withdrawal (4) Drug-induced mood disorder Status: Suspected (5) Insomnia Status: Acute - Initial Treatment Plan Initial Treatment Plan: Psychoeducation.Sleep hygiene.Detoxification in progress.Patient is encouraged to attend groups,community meetings and recreational activities.Remeron 7.5 mg po hs.Ordered. Side effects/benefits discussed with the patient.She consents to follow this careplan.Observation.Patient was interviewed in the presence of a female staff.
[2017-09-07] MEDS: THIAMINE HCL 100 MG TABLET (FP) PO SCH (22:20)
[2017-09-07] MEDS: MIRTAZAPINE 15 MG TABLET (FP) PO SCH (22:20)
[2017-09-08] MEDS ORDERED: METHADONE HCL 5 MG TABLET (FOR DETOX USE ONLY) PO ONE (10:00)
[2017-09-08] MEDS: NICOTINE 21 MG/24 HOURS TOPICAL PATCH TD SCH (10:13)
[2017-09-08] MEDS: PRENATAL VITAMINS W/ FOLIC ACID TABLET (FP) PO SCH (10:13)
--- NOTE | 2017-09-08 12:48 | PN ---
BHS COWS - Scale Resting Pulse: 0= [place] 80 or Below Sweatin= Chills/Flushing Restless Observation: 1= Difficult to Sit Still Pupil Size: 1= Pupils >than Normal Bone or Joint Aches: 2= Severe Diffuse Aches Runny Nose/ Eye Tearin= Runny Nose/Eyes GI Upset > 30mins: 1= Stomach Cramp Tremor Observation of Outstretched Hands: 2= Slight Tremor Visible Yawning Observation: 2= >3x During Session Anxiety or Irritability: 2=Irritable/Anxious Goose Flesh Skin: 0=Smooth Skin COWS Score: 14 BHS Progress Note (SOAP) Subjective: joint aches sweat tremor restlessness agitated Objective: 09/08/17 12:50 Vital Signs Temperature 97 F L 09/08/17 10:46 Pulse Rate 85 09/08/17 10:46 Respiratory Rate 16 09/08/17 10:46 Blood Pressure 108/63 09/08/17 10:46 O2 Sat by Pulse Oximetry (%) Laboratory Last Values WBC 8.2 K/mm3 (4.0-10.0) 09/07/17 05:40 RBC 4.52 M/mm3 (3.60-5.2) 09/07/17 05:40 Hgb 13.5 GM/dL (10.7-15.3) 09/07/17 05:40 Hct 39.5 % (32.4-45.2) 09/07/17 05:40 MCV 87.4 fl (80-96) 09/07/17 05:40 MCH 29.8 pg (25.7-33.7) 09/07/17 05:40 MCHC 34.2 g/dl (32.0-36.0) 09/07/17 05:40 RDW 13.7 % (11.6-15.6) 09/07/17 05:40 Plt Count 279 K/MM3 (134-434) 09/07/17 05:40 MPV 7.9 fl (7.5-11.1) 09/07/17 05:40 Sodium 139 mmol/L (136-145) 09/07/17 05:40 Potassium 4.2 mmol/L (3.5-5.1) 09/07/17 05:40 Chloride 105 mmol/L (98-107) 09/07/17 05:40 Carbon Dioxide 28 mmol/L (21-32) 09/07/17 05:40 Anion Gap 6 (8-16) L 09/07/17 05:40 BUN 9 mg/dL (7-18) 09/07/17 05:40 Creatinine 0.7 mg/dL (0.55-1.02) 09/07/17 05:40 Creat Clearance w eGFR > 60 (>60) 09/07/17 05:40 Random Glucose 88 mg/dL (74-106) 09/07/17 05:40 Calcium 8.8 mg/dL (8.5-10.1) 09/07/17 05:40 Total Bilirubin 0.3 mg/dL (0.2-1.0) 09/07/17 05:40 AST 14 U/L (15-37) L 09/07/17 05:40 ALT 12 U/L (12-78) 09/07/17 05:40 Alkaline Phosphatase 96 U/L (45-117) 09/07/17 05:40 Total Protein 7.1 g/dl (6.4-8.2) 09/07/17 05:40 Albumin 3.8 g/dl (3.4-5.0) 09/07/17 05:40 Urine Color [place] 09/06/17 21:30 Urine Appearance Turbid 09/06/17 21:30 Urine pH 5.0 (5.0-8.0) D 09/06/17 21:30 Ur Specific [place] 1.026 (1.001-1.035) 09/06/17 21:30 Urine Protein Negative (NEGATIVE) 09/06/17 21:30 Urine Glucose (UA) Negative (NEGATIVE) 09/06/17 21:30 Urine Ketones Negative (NEGATIVE) 09/06/17 21:30 Urine Blood 1+ (NEGATIVE) H 09/06/17 21:30 Urine Nitrite Positive (NEGATIVE) 09/06/17 21:30 Urine Bilirubin Negative (NEGATIVE) 09/06/17 21:30 Urine Urobilinogen 2.0 mg/dL (0.2-1.0) H 09/06/17 21:30 Ur Leukocyte Esterase 2+ (NEGATIVE) H 09/06/17 21:30 Urine WBC (Auto) 22 /hpf (3-5) 09/06/17 21:30 Urine RBC (Auto) 1 /hpf (0-3) 09/06/17 21:30 Ur Epithelial Cells Rare /HPF (FEW) 09/06/17 21:30 Urine Bacteria Moderate /hpf (NONE SEEN) 09/06/17 21:30 Urine Mucus Many 09/06/17 21:30 lab noted Assessment: 09/08/17 12:50 withdrawal sx Plan: continue detox
[2017-09-08] MEDS: diazePAM 5 MG TABLET PO PRN ×2 (17:51→22:21)
[2017-09-08] MEDS: THIAMINE HCL 100 MG TABLET (FP) PO SCH (22:20)
[2017-09-08] MEDS: MIRTAZAPINE 15 MG TABLET (FP) PO SCH (22:21)
[2017-09-09] MEDS ORDERED: METHADONE HCL 5 MG TABLET (FOR DETOX USE ONLY) PO ONE (10:00)
--- NOTE | 2017-09-09 10:51 | PN ---
BHS Progress Note (SOAP) Subjective: joint aches sweat tremor restlessness anxiety Objective: 09/09/17 10:49 Vital Signs Temperature 97.5 F L 09/09/17 06:00 Pulse Rate 67 09/09/17 06:00 Respiratory Rate 16 09/09/17 06:00 Blood Pressure 96/65 09/09/17 06:00 O2 Sat by Pulse Oximetry (%) Laboratory Last Values WBC 8.2 K/mm3 (4.0-10.0) 09/07/17 05:40 RBC 4.52 M/mm3 (3.60-5.2) 09/07/17 05:40 Hgb 13.5 GM/dL (10.7-15.3) 09/07/17 05:40 Hct 39.5 % (32.4-45.2) 09/07/17 05:40 MCV 87.4 fl (80-96) 09/07/17 05:40 MCH 29.8 pg (25.7-33.7) 09/07/17 05:40 MCHC 34.2 g/dl (32.0-36.0) 09/07/17 05:40 RDW 13.7 % (11.6-15.6) 09/07/17 05:40 Plt Count 279 K/MM3 (134-434) 09/07/17 05:40 MPV 7.9 fl (7.5-11.1) 09/07/17 05:40 Sodium 139 mmol/L (136-145) 09/07/17 05:40 Potassium 4.2 mmol/L (3.5-5.1) 09/07/17 05:40 Chloride 105 mmol/L (98-107) 09/07/17 05:40 Carbon Dioxide 28 mmol/L (21-32) 09/07/17 05:40 Anion Gap 6 (8-16) L 09/07/17 05:40 BUN 9 mg/dL (7-18) 09/07/17 05:40 Creatinine 0.7 mg/dL (0.55-1.02) 09/07/17 05:40 Creat Clearance w eGFR > 60 (>60) 09/07/17 05:40 Random Glucose 88 mg/dL (74-106) 09/07/17 05:40 Calcium 8.8 mg/dL (8.5-10.1) 09/07/17 05:40 Total Bilirubin 0.3 mg/dL (0.2-1.0) 09/07/17 05:40 AST 14 U/L (15-37) L 09/07/17 05:40 ALT 12 U/L (12-78) 09/07/17 05:40 Alkaline Phosphatase 96 U/L (45-117) 09/07/17 05:40 Total Protein 7.1 g/dl (6.4-8.2) 09/07/17 05:40 Albumin 3.8 g/dl (3.4-5.0) 09/07/17 05:40 Urine Color Jailene 09/06/17 21:30 Urine Appearance Turbid 09/06/17 21:30 Urine pH 5.0 (5.0-8.0) D 09/06/17 21:30 Ur Specific [place] 1.026 (1.001-1.035) 09/06/17 21:30 Urine Protein Negative (NEGATIVE) 09/06/17 21:30 Urine Glucose (UA) Negative (NEGATIVE) 09/06/17 21:30 Urine Ketones Negative (NEGATIVE) 09/06/17 21:30 Urine Blood 1+ (NEGATIVE) H 09/06/17 21:30 Urine Nitrite Positive (NEGATIVE) 09/06/17 21:30 Urine Bilirubin Negative (NEGATIVE) 09/06/17 21:30 Urine Urobilinogen 2.0 mg/dL (0.2-1.0) H 09/06/17 21:30 Ur Leukocyte Esterase 2+ (NEGATIVE) H 09/06/17 21:30 Urine WBC (Auto) 22 /hpf (3-5) 09/06/17 21:30 Urine RBC (Auto) 1 /hpf (0-3) 09/06/17 21:30 Ur Epithelial Cells Rare /HPF (FEW) 09/06/17 21:30 Urine Bacteria Moderate /hpf (NONE SEEN) 09/06/17 21:30 Urine Mucus Many 09/06/17 21:30 RPR Titer Nonreactive (NONREACTIVE) 09/07/17 05:40 lab noted 09/09/17 10:51 repeat ua Assessment: 09/09/17 10:51 withdrawal sx Plan: continue detox
[2017-09-09] MEDS: PRENATAL VITAMINS W/ FOLIC ACID TABLET (FP) PO SCH (10:55)
[2017-09-09] MEDS: NICOTINE 21 MG/24 HOURS TOPICAL PATCH TD SCH (10:56)
[2017-09-09] MEDS: diazePAM 5 MG TABLET PO PRN (13:15)
[2017-09-09] MEDS: THIAMINE HCL 100 MG TABLET (FP) PO SCH (22:11)
[2017-09-09] MEDS: MIRTAZAPINE 15 MG TABLET (FP) PO SCH (22:11)
[2017-09-09] MEDS: hydrOXYzine PAMOATE 50 MG CAPSULE (FP) PO PRN (22:11)
[2017-09-09 22:42] LABS: URINE APPEARANCE SLCLOUDY; URINE BILIRUBIN NEGATIVE (NEGATIVE); URINE BLOOD NEGATIVE (NEGATIVE); URINE COLOR LTYELLOW; URINE GLUCOSE (UA) NEGATIVE (NEGATIVE); URINE KETONE NEGATIVE (NEGATIVE); URINE LEUK ESTERASE TRACE (NEGATIVE); URINE NITRITE NEGATIVE (NEGATIVE); URINE PROTEIN NEGATIVE (NEGATIVE); URINE UROBILINOGEN NEGATIVE mg/dL (0.2-1.0)
[2017-09-09 22:57] LABS: EPI CELLS RARE /HPF (FEW); URINE BACTERIA MANY /hpf (NONE SEEN); URINE MUCUS RARE
[2017-09-10 06:46] VITALS: BP 94/57; PULSE 62; TEMP 97.3
[2017-09-10] MEDS ORDERED: METHADONE HCL 10 MG TABLET (FOR DETOX USE ONLY) PO ONE (10:00)
[2017-09-10] MEDS: PRENATAL VITAMINS W/ FOLIC ACID TABLET (FP) PO SCH (10:32)
[2017-09-10] MEDS: NICOTINE 21 MG/24 HOURS TOPICAL PATCH TD SCH (10:33)
[2017-09-10] MEDS: hydrOXYzine PAMOATE 50 MG CAPSULE (FP) PO PRN (10:33)
--- NOTE | 2017-09-10 10:33 | PN ---
BHS Progress Note (SOAP) Subjective: alert oriented x 3 good appetite denies pain, no tremor less sweat Objective: 09/10/17 10:32 Vital Signs Temperature 97.3 F L 09/10/17 06:00 Pulse Rate 62 09/10/17 06:00 Respiratory Rate 16 09/10/17 06:00 Blood Pressure 94/57 09/10/17 06:00 O2 Sat by Pulse Oximetry (%) Laboratory Last Values WBC 8.2 K/mm3 (4.0-10.0) 09/07/17 05:40 RBC 4.52 M/mm3 (3.60-5.2) 09/07/17 05:40 Hgb 13.5 GM/dL (10.7-15.3) 09/07/17 05:40 Hct 39.5 % (32.4-45.2) 09/07/17 05:40 MCV 87.4 fl (80-96) 09/07/17 05:40 MCH 29.8 pg (25.7-33.7) 09/07/17 05:40 MCHC 34.2 g/dl (32.0-36.0) 09/07/17 05:40 RDW 13.7 % (11.6-15.6) 09/07/17 05:40 Plt Count 279 K/MM3 (134-434) 09/07/17 05:40 MPV 7.9 fl (7.5-11.1) 09/07/17 05:40 Sodium 139 mmol/L (136-145) 09/07/17 05:40 Potassium 4.2 mmol/L (3.5-5.1) 09/07/17 05:40 Chloride 105 mmol/L (98-107) 09/07/17 05:40 Carbon Dioxide 28 mmol/L (21-32) 09/07/17 05:40 Anion Gap 6 (8-16) L 09/07/17 05:40 BUN 9 mg/dL (7-18) 09/07/17 05:40 Creatinine 0.7 mg/dL (0.55-1.02) 09/07/17 05:40 Creat Clearance w eGFR > 60 (>60) 09/07/17 05:40 Random Glucose 88 mg/dL (74-106) 09/07/17 05:40 Calcium 8.8 mg/dL (8.5-10.1) 09/07/17 05:40 Total Bilirubin 0.3 mg/dL (0.2-1.0) 09/07/17 05:40 AST 14 U/L (15-37) L 09/07/17 05:40 ALT 12 U/L (12-78) 09/07/17 05:40 Alkaline Phosphatase 96 U/L (45-117) 09/07/17 05:40 Total Protein 7.1 g/dl (6.4-8.2) 09/07/17 05:40 Albumin 3.8 g/dl (3.4-5.0) 09/07/17 05:40 Urine Color Ltyellow 09/09/17 16:35 Urine Appearance Slcloudy 09/09/17 16:35 Urine pH 5.0 (5.0-8.0) 09/09/17 16:35 Ur Specific [place] 1.012 (1.001-1.035) 09/09/17 16:35 Urine Protein Negative (NEGATIVE) 09/09/17 16:35 Urine Glucose (UA) Negative (NEGATIVE) 09/09/17 16:35 Urine Ketones Negative (NEGATIVE) 09/09/17 16:35 Urine Blood Negative (NEGATIVE) 09/09/17 16:35 Urine Nitrite Negative (NEGATIVE) 09/09/17 16:35 Urine Bilirubin Negative (NEGATIVE) 09/09/17 16:35 Urine Urobilinogen Negative mg/dL (0.2-1.0) 09/09/17 16:35 Ur Leukocyte Esterase Trace (NEGATIVE) 09/09/17 16:35 Urine WBC (Auto) 4 /hpf (3-5) 09/09/17 16:35 Urine RBC (Auto) 1 /hpf (0-3) 09/09/17 16:35 Ur Epithelial Cells Rare /HPF (FEW) 09/09/17 16:35 Urine Bacteria Many /hpf (NONE SEEN) 09/09/17 16:35 Urine Mucus Rare 09/09/17 16:35 RPR Titer Nonreactive (NONREACTIVE) 09/07/17 05:40 lab noted Assessment: 09/10/17 10:33 mild withdrawal sx Plan: medially supervised detox
--- NOTE | 2017-09-10 12:08 | DS ---
[facility] Detox Discharge Summary Admission Date: 09/06/17 Discharge Date: 09/10/17 - History Present History: Opioid Dependence Additional Comments: after lunch patient denies withdrawal sx report feeling much better and look forward to [facility] S1S2 clear lung bilerally skin warm dry patient can be discharged today to home and follow up at [facility] - Physical Exam Results Vital Signs: Vital Signs Temperature 97.3 F L 09/10/17 06:00 Pulse Rate 62 09/10/17 06:00 Respiratory Rate 16 09/10/17 06:00 Blood Pressure 94/57 09/10/17 06:00 O2 Sat by Pulse Oximetry (%) Pertinent Admission Physical Exam Findings: withdrawal sx Vital Signs Temperature 97.3 F L 09/10/17 06:00 Pulse Rate 62 09/10/17 06:00 Respiratory Rate 16 09/10/17 06:00 Blood Pressure 94/57 09/10/17 06:00 O2 Sat by Pulse Oximetry (%) Laboratory Last Values WBC 8.2 K/mm3 (4.0-10.0) 09/07/17 05:40 RBC 4.52 M/mm3 (3.60-5.2) 09/07/17 05:40 Hgb 13.5 GM/dL (10.7-15.3) 09/07/17 05:40 Hct 39.5 % (32.4-45.2) 09/07/17 05:40 MCV 87.4 fl (80-96) 09/07/17 05:40 MCH 29.8 pg (25.7-33.7) 09/07/17 05:40 MCHC 34.2 g/dl (32.0-36.0) 09/07/17 05:40 RDW 13.7 % (11.6-15.6) 09/07/17 05:40 Plt Count 279 K/MM3 (134-434) 09/07/17 05:40 MPV 7.9 fl (7.5-11.1) 09/07/17 05:40 Sodium 139 mmol/L (136-145) 09/07/17 05:40 Potassium 4.2 mmol/L (3.5-5.1) 09/07/17 05:40 Chloride 105 mmol/L (98-107) 09/07/17 05:40 Carbon Dioxide 28 mmol/L (21-32) 09/07/17 05:40 Anion Gap 6 (8-16) L 09/07/17 05:40 BUN 9 mg/dL (7-18) 09/07/17 05:40 Creatinine 0.7 mg/dL (0.55-1.02) 09/07/17 05:40 Creat Clearance w eGFR > 60 (>60) 09/07/17 05:40 Random Glucose 88 mg/dL (74-106) 09/07/17 05:40 Calcium 8.8 mg/dL (8.5-10.1) 09/07/17 05:40 Total Bilirubin 0.3 mg/dL (0.2-1.0) 09/07/17 05:40 AST 14 U/L (15-37) L 09/07/17 05:40 ALT 12 U/L (12-78) 09/07/17 05:40 Alkaline Phosphatase 96 U/L (45-117) 09/07/17 05:40 Total Protein 7.1 g/dl (6.4-8.2) 09/07/17 05:40 Albumin 3.8 g/dl (3.4-5.0) 09/07/17 05:40 Urine Color Ltyellow 09/09/17 16:35 Urine Appearance Slcloudy 09/09/17 16:35 Urine pH 5.0 (5.0-8.0) 09/09/17 16:35 Ur Specific [place] 1.012 (1.001-1.035) 09/09/17 16:35 Urine Protein Negative (NEGATIVE) 09/09/17 16:35 Urine Glucose (UA) Negative (NEGATIVE) 09/09/17 16:35 Urine Ketones Negative (NEGATIVE) 09/09/17 16:35 Urine Blood Negative (NEGATIVE) 09/09/17 16:35 Urine Nitrite Negative (NEGATIVE) 09/09/17 16:35 Urine Bilirubin Negative (NEGATIVE) 09/09/17 16:35 Urine Urobilinogen Negative mg/dL (0.2-1.0) 09/09/17 16:35 Ur Leukocyte Esterase Trace (NEGATIVE) 09/09/17 16:35 Urine WBC (Auto) 4 /hpf (3-5) 09/09/17 16:35 Urine RBC (Auto) 1 /hpf (0-3) 09/09/17 16:35 Ur Epithelial Cells Rare /HPF (FEW) 09/09/17 16:35 Urine Bacteria Many /hpf (NONE SEEN) 09/09/17 16:35 Urine Mucus Rare 09/09/17 16:35 RPR Titer Nonreactive (NONREACTIVE) 09/07/17 05:40 lab noted - Treatment Hospital Course: Detox Protocol Followed, Detoxed Safely, Responded well, Discharged Condition Good, Rehab Referral Accepted Patient has Accepted a Rehab Referral to: [facility] - Medication Discharge Medications: Ambulatory Orders NK [No Known Home Medication] 07/10/17 - Diagnosis (1) Nicotine dependence Current Visit: Yes Status: Acute Qualifiers: Nicotine product type: cigarettes Substance use status: in withdrawal Qualified Code(s): F17.213 - Nicotine dependence, cigarettes, with withdrawal (2) Opioid dependence with withdrawal Current Visit: Yes Status: Acute (3) Depression (emotion) Current Visit: Yes Status: Suspected Qualifiers: Depression Type: dysthymia Qualified Code(s): F34.1 - Dysthymic disorder - AMA Did Patient Leave Against Medical Advice: No
[2017-09-11] MEDS ORDERED: METHADONE HCL 5 MG TABLET (FOR DETOX USE ONLY) PO ONE (06:00)
== END 2017-09-10 13:34 | disposition home or self-care (01) | DRG 774 ==
LOC: YASAS 10:54 → Y6N 15:46
PROVIDERS: ADMIT Internal Medicine; ATTEND Internal Medicine
PROC: HZ2ZZZZ Detoxification Services for Substance Abuse Treatment (ICD-10-PCS; principal; 2017-09-07)
DX: F10.230 Alcohol dependence with withdrawal, uncomplicated (principal); F14.10 Cocaine abuse, uncomplicated; F17.213 Nicotine dependence, cigarettes, with withdrawal; F19.24 Other psychoactive substance dependence with psychoactive substance-induced mood disorder; F34.1 Dysthymic disorder; G47.00 Insomnia, unspecified; Z87.898 Personal history of other specified conditions
CPT/HCPCS: 36415; 80053; 81003; 81015; 85027; 86593; 93005; 93010

== ENCOUNTER 2017-11-07 16:07 | Inpatient (IN) | payer OTHER ==
[2017-11-07 17:12] VITALS: BMI 20.7
--- NOTE | 2017-11-07 17:29 | HP ---
COWS - Scale Resting Pulse: 1= [place] 81-100 Sweatin= No chills or Flushing Restless Observation: 1= Difficult to Sit Still Pupil Size: 1= Pupils >than Normal Bone or Joint Aches: 0= None Runny Nose/ Eye Tearin= Runny Nose/Eyes GI Upset > 30mins: 1= Stomach Cramp Tremor Observation: 1= Tremor [place], Not Seen Yawning Observation: 1= 1-2x During Session Anxiety or Irritability: 1=Feels Anxious/Irritable Goose Flesh Skin: 0=Smooth Skin COWS Score: 9 Admission [facility] - HPI Chief Complaint: I am here for detox, I was [facility] and I couldn't complete. Allergies/Adverse Reactions: Allergies Allergy/AdvReac Type Severity Reaction Status Date / Time No Known Allergies Allergy Verified 11/07/17 17:20 History of Present Illness: 22 yo female with hx of heroin (paranasal) and nicotine dependence. PMHX: PCOS, anxiety, depression . Denies suicidal / homicidal ideation or suicide attempts. Reports tried to detox at [facility] two days ago and only stayed for two days Exam Limitations: No Limitations - Ebola screening Have you traveled outside of the country in the last 21 days: No (N) Have you had contact with anyone from an Ebola affected area: No Have you been sick,other than usual withdrawal symptoms: No Do you have a fever: No - Review of Systems Constitutional: Chills, Changes in sleep, Unintentional Wgt. Loss (15 over the past year) EENT: reports: No Symptoms Reported Respiratory: reports: No Symptoms reported Cardiac: reports: No Symptoms Reported GI: reports: Poor Fluid Intake : reports: No Symptoms Reported Musculoskeletal: reports: No Symptoms Reported Integumentary: reports: Dryness Neuro: reports: Pre-Existing Deficit Endocrine: reports: Increased Thirst Hematology: reports: No Symptoms Reported Psychiatric: reports: Orientated x3, Anxious Other Systems: Reviewed and Negative Patient History - Patient Medical History Hx Anemia: No Hx Asthma: No Hx Chronic Obstructive Pulmonary Disease (COPD): No Hx Cancer: No Hx Cardiac Disorders: No Hx Congestive Heart Failure: No Hx Hypertension: No Hx Hypercholesterolemia: No Hx Pacemaker: No HX Cerebrovascular Accident: No Hx Seizures: No Hx Dementia: No Hx Diabetes: No Hx Gastrointestinal Disorders: No Hx Liver Disease: No Hx Genitourinary Disorders: No Hx Sexually Transmitted Disorders: No Hx Renal Disease (ESRD): No Hx Thyroid Disease: No Hx Human Immunodeficiency Virus (HIV): No Hx Hepatitis C: No Hx Depression: Yes Hx Suicide Attempt: No Hx Bipolar Disorder: No Hx Schizophrenia: No Other Medical History: PCOS - Patient Surgical History Past Surgical History: Yes Hx Neurologic Surgery: No Hx Cataract Extraction: No Hx Cardiac Surgery: No Hx Lung Surgery: No Hx Breast Surgery: No Hx Breast Biopsy: No Hx Abdominal Surgery: No Hx Appendectomy: No Hx Cholecystectomy: No Hx Genitourinary Surgery: No Hx Section: No Hx Orthopedic Surgery: No Hx Hysterectomy: No Other Surgical History: tonsilectomy Anesthesia Reaction: No - PPD History Previous Implant?: Yes Documented Results: Negative w/proof Date: 07/12/17 Results: 0 mm PPD to be Administered?: No - Reproductive History Patient is a Female of Child Bearing Age (11 -55 yrs old): Yes Last Menstrual Period: 07/10/16 Patient : No - Smoking Cessation Smoking history: Current every day smoker Have you smoked in the past 12 months: Yes Aproximately how many cigarettes per day: 20 Cigars Per Day: 0 Hx Chewing Tobacco Use: No Initiated information on smoking cessation: Yes 'Breaking Loose' booklet given: 11/07/17 - Substance & Tx. History Hx Alcohol Use: No Hx Substance Use: Yes Substance Use Type: Heroin Hx Substance Use Treatment: Yes (Attempted Detox at [facility] two days ago, Complete detox @ [facility] 09/2017) - Substances Abused Heroin Route: Inhalation Frequency: Daily Amount used: 3-10 bags Age of first use: 18 Date of Last Use: 11/07/17 Family Disease History - Family Disease History Family Disease History: Heart Disease: Father (alive, high cholesterol), Other: Father, Mother (alive, PTSD, Borderline personality, bipolar, depression ) Admission Physical Exam BHS - Vital Signs Vital Signs: Vital Signs - 24 hr 11/07/17 17:09 Pulse Rate 84 Respiratory 17 Rate Blood Pressure 104/56 - Physical General Appearance: Yes: Appropriately Dressed, Thin, Anxious HEENTM: Yes: EOMI, Hearing grossly Normal, Normal ENT Inspection, Normocephalic , Normal Voice, CLEM, Pharynx Normal, Tm's normal, Other (dry mucous membranes) Respiratory: Yes: Chest Non-Tender, Lungs Clear, Normal Breath Sounds, No Respiratory Distress, No Accessory Muscle Use Neck: Yes: No masses,lesions,Nodules, Trachea in good position Breast: Yes: Breast Exam Deferred Abdominal: Yes: Normal Bowel Sounds, Non Tender, Flat, Soft Genitourinary: Yes: Within Normal Limits Back: Yes: Normal Inspection Musculoskeletal: Yes: full range of Motion, Gait Steady, Pelvis Stable Extremities: Yes: Normal Capillary Refill, Normal Inspection, Normal Range of Motion, Non-Tender Neurological: Yes: instrument assembler II-XII NML intact, Fully Oriented, Alert, Motor Strength 5/5, Depressed Affect Integumentary: Yes: Normal Color, Warm, Moist Lymphatic: Yes: Within Normal Limits - Diagnostic (1) Dehydration Current Visit: Yes Status: Acute (2) Insomnia Current Visit: Yes Status: Acute Qualifiers: Insomnia type: unspecified Qualified Code(s): G47.00 - Insomnia, unspecified (3) Nicotine dependence Current Visit: Yes Status: Acute Qualifiers: Nicotine product type: cigarettes Substance use status: in withdrawal Qualified Code(s): F17.213 - Nicotine dependence, cigarettes, with withdrawal (4) Opioid dependence with withdrawal Current Visit: Yes Status: Acute (5) Weight loss Current Visit: Yes Status: Acute (6) PCOS (polycystic ovarian syndrome) Current Visit: Yes Status: Chronic Cleared for Admission [facility] - Detox or Rehab [facility] Level of Care: Medically Supervised Detox Regimen/Protocol: Methadone [facility] Breath Alcohol Content Breath Alcohol Content: 0 Urine Pregancy Test - Result Urine Test Results: Negative- NO Line Present Urine Drug Screen - Results Drug Screen Negative: No Urine Drug Screen Results: OPI-Opiates, BZO-Benzodiazepines, MTD-Methadone
[2017-11-07] MEDS ORDERED: LOPERAMIDE HCL 2 MG CAPSULE PO PRN (17:35)
[2017-11-07] MEDS ORDERED: MAGNESIUM CITRATE 300 ML BOTTLE PO PRN (17:35)
[2017-11-07] MEDS ORDERED: guaiFENesin/D-METHORPHAN HB 10 ML UNIT-DOSE CUPS PO PRN (17:35)
[2017-11-07] MEDS ORDERED: ACETAMINOPHEN 325 MG TABLET (FP) PO PRN (17:35)
[2017-11-07] MEDS ORDERED: MAGNESIUM HYDROX 2400MG/30ML ORAL SUSPENSION 30 ML CUP PO PRN (17:35)
[2017-11-07] MEDS ORDERED: NICOTINE POLACRILEX 2 MG GUM BC PRN (17:35)
[2017-11-07] MEDS ORDERED: hydrOXYzine PAMOATE 50 MG CAPSULE (FP) PO PRN (17:35)
[2017-11-07] MEDS ORDERED: P-EPHED 60MG/TRIPROLIDI 2.5MG TABLET PO PRN (17:35)
[2017-11-07] MEDS ORDERED: MAG HYDROX/AL HYDROX/SIMETH 30 ML UNIT-DOSE CUP PO PRN (17:35)
[2017-11-07] MEDS ORDERED: IBUPROFEN 400 MG TABLET (FP) PO PRN (17:35)
[2017-11-07] MEDS ORDERED: MENTHOL/PHENOL 1 EACH UD MM PRN (17:35)
[2017-11-07] MEDS ORDERED: METHADONE HCL 10 MG TABLET (FOR DETOX USE ONLY) PO ONE ×2 (18:00→23:00)
[2017-11-07] MEDS ORDERED: MELATONIN 5 MG TABLETS PO PRN (22:00)
[2017-11-07] MEDS: THIAMINE HCL 100 MG TABLET (FP) PO SCH (22:37)
[2017-11-07 23:15] LABS: URINE APPEARANCE SLCLOUDY; URINE BILIRUBIN NEGATIVE (<2.0 mg/dL); URINE COLOR AMBER; URINE GLUCOSE (UA) NEGATIVE (NEGATIVE); URINE KETONE TRACE (NEGATIVE); URINE NITRITE POSITIVE (NEGATIVE); URINE PROTEIN NEGATIVE (NEGATIVE)
[2017-11-07 23:20] LABS: URINE LEUK ESTERASE 1+ (NEGATIVE)
[2017-11-07 23:25] LABS: EPI CELLS FEW /HPF (FEW); URINE BACTERIA MODERATE /hpf (NONE SEEN); URINE MUCUS FEW
--- NOTE | 2017-11-08 09:50 | EKG ---
Test Reason : Blood Pressure : / mmHG Vent. Rate : 056 BPM Atrial Rate : 056 BPM P-R Int : 148 ms QRS Dur : 078 ms QT Int : 404 ms P-R-T Axes : 033 032 019 degrees QTc Int : 389 ms SINUS BRADYCARDIA WITH SINUS ARRHYTHMIA NONSPECIFIC T WAVE ABNORMALITY WHEN COMPARED WITH ECG OF 06-SEP-2017 17:28, NO SIGNIFICANT CHANGE WAS FOUND Confirmed by JULIANA TOVAR MD ([id number]) on 11/08/2017 9:49:43 AM Referred By: Confirmed By:JULIANA TOVAR MD
[2017-11-08 09:56] LABS: HEMATOCRIT 37.7 % (32.4-45.2); HEMOGLOBIN 12.7 GM/dL (10.7-15.3); MCH 29.6 pg (25.7-33.7); MCHC 33.6 g/dl (32.0-36.0); PLATELET COUNT 202 K/MM3 (134-434); RBC 4.29 M/mm3 (3.60-5.2); RDW 13.6 % (11.6-15.6); WHITE BLOOD COUNT 7.5 K/mm3 (4.0-10.0)
[2017-11-08] MEDS ORDERED: METHADONE HCL 10 MG TABLET (FOR DETOX USE ONLY) PO ONE (10:00)
[2017-11-08] MEDS: PRENATAL VITAMINS W/ FOLIC ACID TABLET (FP) PO SCH (10:29)
[2017-11-08] MEDS: NICOTINE 21 MG/24 HOURS TOPICAL PATCH TD SCH (10:30)
[2017-11-08 10:52] LABS: CHLORIDE 107 mmol/L (98-107); POTASSIUM 4.1 mmol/L (3.5-5.1); SODIUM 140 mmol/L (136-145)
[2017-11-08 10:59] LABS: ALBUMIN 3.5 g/dl (3.4-5.0); ALK PHOS 79 U/L (45-117); ANION GAP 5 (8-16); BILIRUBIN,TOTAL 0.3 mg/dL (0.2-1.0); BLOOD UREA NITROGEN 10 mg/dL (7-18); CALCIUM 8.7 mg/dL (8.5-10.1); CO2 28 mmol/L (21-32); CREATININE 0.7 mg/dL (0.55-1.02); GLUCOSE,RANDOM 82 mg/dL (74-106); SGOT/AST 14 U/L (15-37); SGPT/ALT 12 U/L (12-78); TOT PROT 6.4 g/dl (6.4-8.2)
--- NOTE | 2017-11-08 11:51 | CONSULT ---
[facility] Psychiatric Consult - Data Date of interview: 11/08/17 Admission source: [facility] Identifying data: Patient is a 22 year old single female, without kids, unemployed (denies receiving financial assistance), and currently lives at home with parents. This is one of multiple admissions for patient. Pt. admitted to for opiate dependence. Substance Abuse History: Following information confirmed with Ms. Rose: Smoking Cessation. Smoking history: Current every day smoker. Have you smoked in the past 12 months: Yes. Aproximately how many cigarettes per day: 20. Cigars Per Day: 0. Hx Chewing Tobacco Use: No. Initiated information on smoking cessation: Yes. 'Breaking Loose' booklet given: 11/07/17. - Substance & Tx. History. Hx Alcohol Use: No. Hx Substance Use: Yes. Substance Use Type : Heroin. Hx Substance Use Treatment: Yes (Attempted Detox at [facility] two days ago,Complete detox @ [facility] 09/2017). - Substances Abused. Heroin. Route: Inhalation. Frequency: Daily. Amount used: 3-10 bags. Age of first use : 18. Date of Last Use: 11/07/17 Medical History: tonsilectomy, PCOS Psychiatric History: Patient denies h/o psychiatric hospitalization and suicide attempts. Patient reports OPD two years ago at the [facility]. Patient states she was on several medications during different times which include prozac, lamictal, suboxone, and other medications. Self reports diagnosis of depression and anxiety. Pt. reports taking medications intemittently for three months. Pt. is currently nonadherent to medications and outpatient care. Patient currently denies suicidal and homicidal ideation. Physical/Sexual Abuse/Trauma History: Denies. Mental Status Exam - Mental Status Exam Alert and Oriented to: Time, Place, Person Cognitive Function: Good Patient Appearance: Well Groomed Mood: Euthymic Affect: Mood Congruent Patient Behavior: Appropriate, Cooperative Speech Pattern: Clear, Appropriate Voice Loudness: Normal Thought Process: Goal Oriented Thought Disorder: Not Present Hallucinations: Denies Suicidal Ideation: Denies Homicidal Ideation: Denies Insight/Judgement: Poor Sleep: Fair Appetite: Fair Muscle strength/Tone: Normal Gait/Station: Normal Psychiatric Findings - Problem List ([place] 1, 2,3) (1) Insomnia Current Visit: Yes Status: Acute Qualifiers: Insomnia type: unspecified Qualified Code(s): G47.00 - Insomnia, unspecified (2) Nicotine dependence Current Visit: Yes Status: Acute Qualifiers: Nicotine product type: cigarettes Substance use status: in withdrawal Qualified Code(s): F17.213 - Nicotine dependence, cigarettes, with withdrawal (3) Opioid dependence with withdrawal Current Visit: Yes Status: Acute - Initial Treatment Plan Initial Treatment Plan: Psychoeducation provided. Detoxification in progress. Insomnia to be adressed with Melatonin 5mg. Will continue to monitor.
--- NOTE | 2017-11-08 12:35 | PN ---
BHS COWS - Scale Resting Pulse: 0= [place] 80 or Below Sweatin= Chills/Flushing Restless Observation: 1= Difficult to Sit Still Pupil Size: 1= Pupils >than Normal Bone or Joint Aches: 1= Mild Discomfort Runny Nose/ Eye Tearin= Nasal Congestion GI Upset > 30mins: 1= Stomach Cramp Tremor Observation of Outstretched Hands: 1= Tremor [place], Not Seen Yawning Observation: 1= 1-2x During Session Anxiety or Irritability: 1=Feels Anxious/Irritable Goose Flesh Skin: 0=Smooth Skin COWS Score: 9 BHS Progress Note (SOAP) Subjective: join pain body ache sweat tremor restlessness Objective: 11/08/17 12:37 Vital Signs Temperature 97.9 F 11/08/17 10:43 Pulse Rate 75 11/08/17 10:43 Respiratory Rate 20 11/08/17 10:43 Blood Pressure 91/59 11/08/17 10:43 O2 Sat by Pulse Oximetry (%) Laboratory Last Values WBC 7.5 K/mm3 (4.0-10.0) 11/08/17 07:30 RBC 4.29 M/mm3 (3.60-5.2) 11/08/17 07:30 Hgb 12.7 GM/dL (10.7-15.3) 11/08/17 07:30 Hct 37.7 % (32.4-45.2) 11/08/17 07:30 MCV 88.0 fl (80-96) 11/08/17 07:30 MCH 29.6 pg (25.7-33.7) 11/08/17 07:30 MCHC 33.6 g/dl (32.0-36.0) 11/08/17 07:30 RDW 13.6 % (11.6-15.6) 11/08/17 07:30 Plt Count 202 K/MM3 (134-434) D 11/08/17 07:30 MPV 8.0 fl (7.5-11.1) 11/08/17 07:30 Sodium 140 mmol/L (136-145) 11/08/17 07:30 Potassium 4.1 mmol/L (3.5-5.1) 11/08/17 07:30 Chloride 107 mmol/L (98-107) 11/08/17 07:30 Carbon Dioxide 28 mmol/L (21-32) 11/08/17 07:30 Anion Gap 5 (8-16) L 11/08/17 07:30 BUN 10 mg/dL (7-18) 11/08/17 07:30 Creatinine 0.7 mg/dL (0.55-1.02) 11/08/17 07:30 Creat Clearance w eGFR > 60 (>60) 11/08/17 07:30 Random Glucose 82 mg/dL (74-106) 11/08/17 07:30 Calcium 8.7 mg/dL (8.5-10.1) 11/08/17 07:30 Total Bilirubin 0.3 mg/dL (0.2-1.0) 11/08/17 07:30 AST 14 U/L (15-37) L 11/08/17 07:30 ALT 12 U/L (12-78) 11/08/17 07:30 Alkaline Phosphatase 79 U/L (45-117) 11/08/17 07:30 Total Protein 6.4 g/dl (6.4-8.2) 11/08/17 07:30 Albumin 3.5 g/dl (3.4-5.0) 11/08/17 07:30 Urine Color [place] 11/07/17 19:52 Urine Appearance Slcloudy 11/07/17 19:52 Urine pH 5.0 (5.0-8.0) 11/07/17 19:52 Ur Specific [place] 1.026 (1.001-1.035) 11/07/17 19:52 Urine Protein Negative (NEGATIVE) 11/07/17 19:52 Urine Glucose (UA) Negative (NEGATIVE) 11/07/17 19:52 Urine Ketones Trace (NEGATIVE) H 11/07/17 19:52 Urine Blood Negative (NEGATIVE) 11/07/17 19:52 Urine Nitrite Positive (NEGATIVE) 11/07/17 19:52 Urine Bilirubin Negative (<2.0 mg/dL) 11/07/17 19:52 Urine Urobilinogen 2.0 mg/dL (0.2-1.0) H 11/07/17 19:52 Ur Leukocyte Esterase 1+ (NEGATIVE) H 11/07/17 19:52 Urine WBC (Auto) 11 /hpf (3-5) 11/07/17 19:52 Urine RBC (Auto) 3 /hpf (0-3) 11/07/17 19:52 Ur Epithelial Cells Few /HPF (FEW) 11/07/17 19:52 Urine Bacteria Moderate /hpf (NONE SEEN) 11/07/17 19:52 Urine Mucus Few 11/07/17 19:52 lab noted 11/08/17 12:37 gu asymptomatic Assessment: 11/08/17 12:38 withdrawal sx Plan: continue detox
[2017-11-08] MEDS: THIAMINE HCL 100 MG TABLET (FP) PO SCH (22:07)
[2017-11-08] MEDS: diazePAM 5 MG TABLET PO PRN (22:07)
[2017-11-09] MEDS ORDERED: METHADONE HCL 5 MG TABLET (FOR DETOX USE ONLY) PO ONE (10:00)
[2017-11-09] MEDS: diazePAM 5 MG TABLET PO PRN ×3 (10:40→22:06)
[2017-11-09] MEDS: PRENATAL VITAMINS W/ FOLIC ACID TABLET (FP) PO SCH (10:40)
[2017-11-09] MEDS: NICOTINE 21 MG/24 HOURS TOPICAL PATCH TD SCH (10:42)
--- NOTE | 2017-11-09 14:14 | PN ---
S COWS - Scale Resting Pulse: 0= [place] 80 or Below Sweatin=Flushed/Facial Moisture Restless Observation: 1= Difficult to Sit Still Pupil Size: 0= Normal to Room Light Bone or Joint Aches: 1= Mild Discomfort Runny Nose/ Eye Tearin= Nasal Congestion GI Upset > 30mins: 2= Nausea/Diarrhea Tremor Observation of Outstretched Hands: 2= Slight Tremor Visible Yawning Observation: 0= None Anxiety or Irritability: 2=Irritable/Anxious Goose Flesh Skin: 0=Smooth Skin COWS Score: 11 S Progress Note (SOAP) Subjective: Interrupted sleep, leg pain Objective: 11/09/17 14:12 Vital Signs - 8 hr 11/09/17 11/09/17 11/09/17 06:28 10:00 14:11 Temperature 97.5 F L 98.1 F 97.7 F Pulse Rate 43 L 72 80 Respiratory 16 18 18 Rate Blood Pressure 106/56 100/55 102/52 Laboratory Last Values WBC 7.5 K/mm3 (4.0-10.0) 11/08/17 07:30 RBC 4.29 M/mm3 (3.60-5.2) 11/08/17 07:30 Hgb 12.7 GM/dL (10.7-15.3) 11/08/17 07:30 Hct 37.7 % (32.4-45.2) 11/08/17 07:30 MCV 88.0 fl (80-96) 11/08/17 07:30 MCH 29.6 pg (25.7-33.7) 11/08/17 07:30 MCHC 33.6 g/dl (32.0-36.0) 11/08/17 07:30 RDW 13.6 % (11.6-15.6) 11/08/17 07:30 Plt Count 202 K/MM3 (134-434) D 11/08/17 07:30 MPV 8.0 fl (7.5-11.1) 11/08/17 07:30 Sodium 140 mmol/L (136-145) 11/08/17 07:30 Potassium 4.1 mmol/L (3.5-5.1) 11/08/17 07:30 Chloride 107 mmol/L (98-107) 05/04/18 07:30 Carbon Dioxide 28 mmol/L (21-32) 11/08/17 07:30 Anion Gap 5 (8-16) L 11/08/17 07:30 BUN 10 mg/dL (7-18) 11/08/17 07:30 Creatinine 0.7 mg/dL (0.55-1.02) 11/08/17 07:30 Creat Clearance w eGFR > 60 (>60) 11/08/17 07:30 Random Glucose 82 mg/dL (74-106) 11/08/17 07:30 Calcium 8.7 mg/dL (8.5-10.1) 11/08/17 07:30 Total Bilirubin 0.3 mg/dL (0.2-1.0) 11/08/17 07:30 AST 14 U/L (15-37) L 11/08/17 07:30 ALT 12 U/L (12-78) 11/08/17 07:30 Alkaline Phosphatase 79 U/L (45-117) 11/08/17 07:30 Total Protein 6.4 g/dl (6.4-8.2) 11/08/17 07:30 Albumin 3.5 g/dl (3.4-5.0) 11/08/17 07:30 Urine Color [place] 11/07/17 19:52 Urine Appearance Slcloudy 11/07/17 19:52 Urine pH 5.0 (5.0-8.0) 11/07/17 19:52 Ur Specific [place] 1.026 (1.001-1.035) 11/07/17 19:52 Urine Protein Negative (NEGATIVE) 11/07/17 19:52 Urine Glucose (UA) Negative (NEGATIVE) 11/07/17 19:52 Urine Ketones Trace (NEGATIVE) H 11/07/17 19:52 Urine Blood Negative (NEGATIVE) 11/07/17 19:52 Urine Nitrite Positive (NEGATIVE) 11/07/17 19:52 Urine Bilirubin Negative (<2.0 mg/dL) 11/07/17 19:52 Urine Urobilinogen 2.0 mg/dL (0.2-1.0) H 11/07/17 19:52 Ur Leukocyte Esterase 1+ (NEGATIVE) H 11/07/17 19:52 Urine WBC (Auto) 11 /hpf (3-5) 11/07/17 19:52 Urine RBC (Auto) 3 /hpf (0-3) 11/07/17 19:52 Ur Epithelial Cells Few /HPF (FEW) 11/07/17 19:52 Urine Bacteria Moderate /hpf (NONE SEEN) 11/07/17 19:52 Urine Mucus Few 11/07/17 19:52 RPR Titer Nonreactive (NONREACTIVE) 11/08/17 07:30 Labs noted UA-positive nitrites, 1 + leukocyte esterase, moderate bacteria and epithelial cells present Assessment: 11/09/17 14:14 Withdrawal sx Questionable UTI. Patient is asymptomatic Plan: Continue detox Repeat UA
[2017-11-09] MEDS: THIAMINE HCL 100 MG TABLET (FP) PO SCH (22:06)
[2017-11-10 09:55] LABS: URINE APPEARANCE CLOUDY; URINE BILIRUBIN NEGATIVE (<2.0 mg/dL); URINE COLOR YELLOW; URINE GLUCOSE (UA) NEGATIVE (NEGATIVE); URINE KETONE NEGATIVE (NEGATIVE); URINE NITRITE POSITIVE (NEGATIVE); URINE PROTEIN NEGATIVE (NEGATIVE); URINE UROBILINOGEN NEGATIVE mg/dL (0.2-1.0)
[2017-11-10] MEDS ORDERED: METHADONE HCL 5 MG TABLET (FOR DETOX USE ONLY) PO ONE (10:00)
[2017-11-10 10:06] LABS: URINE LEUK ESTERASE 3+ (NEGATIVE)
[2017-11-10] MEDS: diazePAM 5 MG TABLET PO PRN (10:27)
[2017-11-10] MEDS: NICOTINE 21 MG/24 HOURS TOPICAL PATCH TD SCH (10:27)
[2017-11-10] MEDS: PRENATAL VITAMINS W/ FOLIC ACID TABLET (FP) PO SCH (10:27)
[2017-11-10 10:42] LABS: EPI CELLS FEW /HPF (FEW); URINE BACTERIA MANY /hpf (NONE SEEN); URINE MUCUS RARE
[2017-11-10 13:28] VITALS: BP 97/58; PULSE 73; TEMP 97.9
--- NOTE | 2017-11-10 16:19 | PN ---
S Progress Note (SOAP) Subjective: Anxious, sweating, interrupted sleep Objective: 11/10/17 16:16 Last Vital Signs Temp Pulse Resp BP Pulse Ox 97.9 F 73 16 97/58 11/10/17 13:27 11/10/17 13:27 11/10/17 13:27 11/10/17 13:27 Hypotension: asymptomatic, encouraged to drink lots of water for hydration Laboratory Tests 11/07/17 11/08/17 11/08/17 19:52 07:30 07:30 WBC 7.5 RBC 4.29 Hgb 12.7 Hct 37.7 MCV 88.0 MCH 29.6 MCHC 33.6 RDW 13.6 Plt Count 202 D MPV 8.0 Sodium 140 Potassium 4.1 Chloride 107 Carbon Dioxide 28 Anion Gap 5 L BUN 10 Creatinine 0.7 Creat Clearance w eGFR > 60 Random Glucose 82 Calcium 8.7 Total Bilirubin 0.3 AST 14 L ALT 12 Alkaline Phosphatase 79 Total Protein 6.4 Albumin 3.5 Urine Color [place] Urine Appearance Slcloudy Urine pH 5.0 Ur Specific [place] 1.026 Urine Protein Negative Urine Glucose (UA) Negative Urine Ketones Trace H Urine Blood Negative Urine Nitrite Positive Urine Bilirubin Negative Urine Urobilinogen 2.0 H Ur Leukocyte Esterase 1+ H Urine WBC (Auto) 11 Urine RBC (Auto) 3 Ur Epithelial Cells Few Urine Bacteria Moderate Urine Mucus Few RPR Titer 11/08/17 11/10/17 07:30 07:15 WBC RBC Hgb Hct MCV MCH MCHC RDW Plt Count MPV Sodium Potassium Chloride Carbon Dioxide Anion Gap BUN Creatinine Creat Clearance w eGFR Random Glucose Calcium Total Bilirubin AST ALT Alkaline Phosphatase Total Protein Albumin Urine Color Yellow Urine Appearance Cloudy Urine pH 6.0 Ur Specific [place] 1.008 Urine Protein Negative Urine Glucose (UA) Negative Urine Ketones Negative Urine Blood Negative Urine Nitrite Positive Urine Bilirubin Negative Urine Urobilinogen Negative Ur Leukocyte Esterase 3+ H D Urine WBC (Auto) 17 Urine RBC (Auto) None Ur Epithelial Cells Few Urine Bacteria Many Urine Mucus Rare RPR Titer Nonreactive Labs reviewed; + UTI Assessment: 11/10/17 16:18 Withdrawal symptoms Noted with UTI Plan: Continue detox UTI: encouraged to drink lots of water, send urine culture stat, start cipro 500mg PO bid x 3 days
--- NOTE | 2017-11-10 17:33 | PN ---
[facility] Progress Note Note: Pt insists on leaving despite advise to stay to complete detox. Pt stated "I just want to leave", states nothing can be done to change her mind. When asked how what she will do to prevent adverse withdrawal sx, pt states "I Am going to see how I feel, If I feel like s..t, i will take a strip of subaxone that I have at home". States she lives with her parents and will not be alone. A & O x 3, gait steady, in no acute distress, able to make decisions for self at this time.
--- NOTE | 2017-11-10 17:44 | DS ---
[facility] Detox Discharge Summary Admission Date: 11/07/17 Discharge Date: 11/10/17 - History Present History: Opioid Dependence Additional Comments: Pt left unit against medical advice A & O x 3, gait steady, in no acute distress, able to make decisions for self at this time. (pls see progress note) Cipro to be sent to pt's pharmacy for UTI, - Physical Exam Results Vital Signs: Vital Signs Temperature 97.9 F 11/10/17 13:27 Pulse Rate 73 11/10/17 13:27 Respiratory Rate 16 11/10/17 13:27 Blood Pressure 97/58 11/10/17 13:27 O2 Sat by Pulse Oximetry (%) Pertinent Admission Physical Exam Findings: withdrawal sx - Medication Discharge Medications: Ambulatory Orders NK [No Known Home Medication] 07/10/17 - Diagnosis (1) Opioid dependence with uncomplicated intoxication Current Visit: Yes Status: Acute (2) UTI (urinary tract infection) Current Visit: Yes Status: Acute (3) Nicotine dependence Current Visit: Yes Status: Chronic Qualifiers: Nicotine product type: cigarettes Substance use status: uncomplicated Qualified Code(s): F17.210 - Nicotine dependence, cigarettes, uncomplicated - AMA Did Patient Leave Against Medical Advice: Yes
--- NOTE | 2017-11-10 18:09 | PN ---
S Progress Note Note: Prescription cipro sent to pts [facility] pharmacy. Accidentally sent 2 rx with different doses; unable to discontinue/correct transmission. Clarified order of cipro 250mg BID x 3 days to Pharmacist Cherie at the pharmacy who verbalized order back to provider and will dispense accordingly.
[2017-11-10] MEDS ORDERED: CIPROFLOXACIN 500 MG TABLET (RESTRICTED TO ID) PO SCH (22:00)
[2017-11-11] MEDS ORDERED: METHADONE HCL 10 MG TABLET (FOR DETOX USE ONLY) PO ONE (10:00)
[2017-11-12] MEDS ORDERED: METHADONE HCL 5 MG TABLET (FOR DETOX USE ONLY) PO ONE (06:00)
== END 2017-11-10 17:26 | disposition left against medical advice (07) | DRG 770 ==
LOC: YASAS 16:07 → Y6N 18:14
PROVIDERS: ADMIT Surgery; ATTEND Surgery
PROC: HZ2ZZZZ Detoxification Services for Substance Abuse Treatment (ICD-10-PCS; principal; 2017-11-07)
DX: F11.23 Opioid dependence with withdrawal (principal); F14.10 Cocaine abuse, uncomplicated; F17.210 Nicotine dependence, cigarettes, uncomplicated; F34.1 Dysthymic disorder; G47.00 Insomnia, unspecified; E28.2 Polycystic ovarian syndrome; N39.0 Urinary tract infection, site not specified; R63.4 Abnormal weight loss; Z68.20 Body mass index [BMI] 20.0-20.9, adult
CPT/HCPCS: 36415; 80053; 81003; 81015; 85027; 86593; 93005; 93010

== ENCOUNTER 2018-05-17 16:59 | Inpatient (IN) | payer OTHER ==
[2018-05-17 17:01] VITALS: BMI 20.5
--- NOTE | 2018-05-17 18:42 | HP ---
COWS - Scale Resting Pulse: 1= [place] 81-100 Sweatin= Chills/Flushing Restless Observation: 1= Difficult to Sit Still Pupil Size: 1= Pupils >than Normal Bone or Joint Aches: 2= Severe Diffuse Aches Runny Nose/ Eye Tearin= Runny Nose/Eyes GI Upset > 30mins: 2= Nausea/Diarrhea Tremor Observation: 2= Slight Tremor Visible Yawning Observation: 2= >3x During Session Anxiety or Irritability: 2=Irritable/Anxious Goose Flesh Skin: 0=Smooth Skin COWS Score: 16 CIWA Score - Admission Criteria [facility]ASAS Guidelines: Admission for Medically Managed Detox: Requires at least one of the followin. CIWA greater than 12 2. Seizures within the past 24 hours 3. Delirium tremens within the past 24 hours 4. Hallucinations within the past 24 hours 5. Acute intervention needed for co occurring medical disorder 6. Acute intervention needed for co occurring psychiatric disorder 7. Severe withdrawal that cannot be handled at a lower level of care (continued vomiting, continued diarrhea, abnormal vital signs) requiring intravenous medication and/or fluids 8. Admission ROS [facility] Chief Complaint: i need help to stop using heroin Allergies/Adverse Reactions: Allergies Allergy/AdvReac Type Severity Reaction Status Date / Time No Known Allergies Allergy Verified 05/17/18 20:52 History of Present Illness: this 23 years old female with heroin dependence seeking detox,withdrawal symptom ,seeking detox,last detox 18 to 11/10/17 not completed multiple admissions in detox nicotine dependence weight loss anxiety and depression longest period of sobriety 8 months Exam Limitations: No Limitations - Ebola screening Have you traveled outside of the country in the last 21 days: No Have you been sick,other than usual withdrawal symptoms: No - Review of Systems Constitutional: Chills, Loss of Appetite, Malaise, Night Sweats, Changes in sleep, Weakness, Unintentional Wgt. Loss EENT: reports: Tearing, Nose Congestion Respiratory: reports: No Symptoms reported Cardiac: reports: No Symptoms Reported GI: reports: Nausea, Vomiting, Abdominal cramping : reports: No Symptoms Reported Musculoskeletal: reports: Back Pain, Joint Pain, Muscle Pain Integumentary: reports: Dryness Neuro: reports: Headache, Tremors Endocrine: reports: No Symptoms Reported Hematology: reports: No Symptoms Reported Psychiatric: reports: No Sypmtoms Reported, Judgement Intact, Mood/Affect Appropiate, Orientated x3, Anxious, Depressed Other Systems: Reviewed and Negative Patient History - Patient Medical History Hx Anemia: No Hx Asthma: No Hx Chronic Obstructive Pulmonary Disease (COPD): No Hx Cancer: No Hx Cardiac Disorders: No Hx Congestive Heart Failure: No Hx Hypertension: No Hx Hypercholesterolemia: No Hx Pacemaker: No HX Cerebrovascular Accident: No Hx Seizures: No Hx Dementia: No Hx Diabetes: No Hx Gastrointestinal Disorders: No Hx Liver Disease: No Hx Genitourinary Disorders: No Hx Sexually Transmitted Disorders: No Hx Renal Disease (ESRD): No Hx Thyroid Disease: No Hx Human Immunodeficiency Virus (HIV): No (last 11/22 negative) Hx Hepatitis C: No Hx Depression: Yes (anxiety) Hx Suicide Attempt: No Hx Bipolar Disorder: No Hx Schizophrenia: No Other Medical History: no suicidal,no homicidal - Patient Surgical History Past Surgical History: Yes Hx Neurologic Surgery: No Hx Cataract Extraction: No Hx Cardiac Surgery: No Hx Lung Surgery: No Hx Breast Surgery: No Hx Breast Biopsy: No Hx Abdominal Surgery: No Hx Appendectomy: No Hx Cholecystectomy: No Hx Genitourinary Surgery: No Hx Section: No Hx Orthopedic Surgery: No Hx Hysterectomy: No Other Surgical History: tonsilectomy age 13 Anesthesia Reaction: No - PPD History Previous Implant?: Yes Documented Results: Negative w/proof Implanted On Prior [facility] Admission?: Yes Date: 07/12/17 Results: 0 mm PPD to be Administered?: No - Reproductive History Patient is a Female of Child Bearing Age (11 -55 yrs old): Yes Last Menstrual Period: 06/16/17 Patient : No - Smoking Cessation Smoking history: Current every day smoker Have you smoked in the past 12 months: Yes Aproximately how many cigarettes per day: 20 Cigars Per Day: 0 Hx Chewing Tobacco Use: No Initiated information on smoking cessation: Yes 'Breaking Loose' booklet given: 05/17/18 - Substance & Tx. History Hx Alcohol Use: No Hx Substance Use: Yes Substance Use Type: Heroin Hx Substance Use Treatment: Yes ([facility] 11/07/17 to 11/10/17) - Substances Abused Heroin Route: Inhalation Frequency: Daily Amount used: 10 bags Age of first use: 19 Date of Last Use: 05/17/18 Family Disease History - Family Disease History Family Disease History: Heart Disease: Father (alive, high cholesterol), Other: Father, Mother (alive, PTSD, Borderline personality, bipolar, depression ) Admission Physical Exam [facility] - Vital Signs Vital Signs: Vital Signs - 24 hr 05/17/18 17:00 Temperature 97.7 F Pulse Rate 83 Respiratory 18 Rate Blood Pressure 118/60 - Physical General Appearance: Yes: Moderate Distress, Tremorous, Irritable, Sweating, Anxious HEENTM: Yes: Normal ENT Inspection, CLEM, Pharynx Normal Respiratory: Yes: Lungs Clear, Normal Breath Sounds Neck: Yes: Within Normal Limits Breast: Yes: Breast Exam Deferred Cardiology: Yes: Within Normal Limits, Regular Rhythm, Regular Rate, S1, S2 Abdominal: Yes: Within Normal Limits, Normal Bowel Sounds, Non Tender, Flat, Soft Genitourinary: Yes: Within Normal Limits Back: Yes: Muscle Spasm Musculoskeletal: Yes: full range of Motion, Back pain, Joint Stiffness, Muscle Pain Extremities: Yes: Within Normal Limits, Normal Range of Motion, Tremors Neurological: Yes: entertainment agent II-XII NML intact, Fully Oriented, Alert, Motor Strength 5/5 Integumentary: Yes: Dry Lymphatic: Yes: Within Normal Limits - Diagnostic (1) Opioid dependence with withdrawal Current Visit: No Status: Acute (2) Dehydration Current Visit: No Status: Acute (3) Weight loss Current Visit: No Status: Acute (4) PCOS (polycystic ovarian syndrome) Current Visit: No Status: Chronic Cleared for Admission [facility] - Detox or Rehab [facility] Level of Care: Medically Managed Detox Regimen/Protocol: Methadone [facility] Breath Alcohol Content Breath Alcohol Content: 0 Urine Pregancy Test - Result Urine Test Results: Negative- NO Line Present Urine Drug Screen - Results Urine Drug Screen Results: OPI-Opiates, FEN-Fentanyl
[2018-05-17] MEDS ORDERED: MAG HYDROX/AL HYDROX/SIMETH 30 ML UNIT-DOSE CUP PO PRN (18:53)
[2018-05-17] MEDS ORDERED: MAGNESIUM HYDROX 2400MG/30ML ORAL SUSPENSION 30 ML CUP PO PRN (18:53)
[2018-05-17] MEDS ORDERED: MENTHOL/PHENOL 1 EACH UD MM PRN (18:53)
[2018-05-17] MEDS ORDERED: guaiFENesin/D-METHORPHAN HB 10 ML UNIT-DOSE CUPS PO PRN (18:53)
[2018-05-17] MEDS ORDERED: MAGNESIUM CITRATE 300 ML BOTTLE PO PRN (18:53)
[2018-05-17] MEDS ORDERED: IBUPROFEN 400 MG TABLET (FP) PO PRN (18:53)
[2018-05-17] MEDS ORDERED: P-EPHED 60MG/TRIPROLIDI 2.5MG TABLET PO PRN (18:53)
[2018-05-17] MEDS ORDERED: LOPERAMIDE HCL 2 MG CAPSULE PO PRN (18:53)
[2018-05-17] MEDS ORDERED: ACETAMINOPHEN 325 MG TABLET (FP) PO PRN (18:53)
[2018-05-17] MEDS ORDERED: METHADONE HCL 10 MG TABLET (FOR DETOX USE ONLY) PO ONE ×2 (18:53→23:00)
[2018-05-17] MEDS: cloNIDine HCL 0.1 MG TABLET PO SCH (21:52)
[2018-05-17] MEDS: CYCLOBENZAPRINE HCL 10 MG TABLET (FP) PO PRN (21:52)
[2018-05-17] MEDS: THIAMINE HCL 100 MG TABLET (FP) PO SCH (21:53)
[2018-05-17] MEDS: diazePAM 5 MG TABLET PO PRN (21:53)
[2018-05-17] MEDS: NICOTINE 21 MG/24 HOURS TOPICAL PATCH TD SCH (22:48)
[2018-05-18 01:54] LABS: URINE APPEARANCE CLOUDY; URINE BILIRUBIN NEGATIVE (<2.0 mg/dL); URINE COLOR YELLOW; URINE GLUCOSE (UA) NEGATIVE (NEGATIVE); URINE KETONE NEGATIVE (NEGATIVE); URINE LEUK ESTERASE NEGATIVE (NEGATIVE); URINE NITRITE NEGATIVE (NEGATIVE); URINE PROTEIN NEGATIVE (NEGATIVE); URINE UROBILINOGEN NEGATIVE mg/dL (0.2-1.0)
[2018-05-18] MEDS ORDERED: METHADONE HCL 10 MG TABLET (FOR DETOX USE ONLY) PO ONE (10:00)
[2018-05-18] MEDS: diazePAM 5 MG TABLET PO PRN ×3 (10:13→22:30)
[2018-05-18] MEDS: PRENATAL VITAMINS W/ FOLIC ACID TABLET (FP) PO SCH (10:13)
[2018-05-18] MEDS: cloNIDine HCL 0.1 MG TABLET PO SCH ×2 (10:15→22:29)
[2018-05-18] MEDS: NICOTINE 21 MG/24 HOURS TOPICAL PATCH TD SCH (10:15)
[2018-05-18 10:51] LABS: ALK PHOS 78 U/L (45-117); ANION GAP 4 MMOL/L (8-16); BILIRUBIN,TOTAL 0.2 mg/dL (0.2-1); BLOOD UREA NITROGEN 13 mg/dL (7-18); CALCIUM 8.7 mg/dL (8.5-10.1); CHLORIDE 105 mmol/L (98-107); CO2 30 mmol/L (21-32); CREATININE 0.8 mg/dL (0.55-1.3); GLUCOSE,RANDOM 87 mg/dL (74-106); POTASSIUM 4.4 mmol/L (3.5-5.1); SGOT/AST 17 U/L (15-37); SGPT/ALT 17 U/L (13-61); SODIUM 140 mmol/L (136-145); TOT PROT 6.5 g/dl (6.4-8.2)
[2018-05-18 11:04] LABS: HEMATOCRIT 37.3 % (32.4-45.2); HEMOGLOBIN 12.1 GM/dL (10.7-15.3); MCH 27.9 pg (25.7-33.7); MCHC 32.5 g/dl (32.0-36.0); MEAN CELL VOLUME 86.1 fl (80-96); MEAN PLT VOLUME 6.7 fl (7.5-11.1); PLATELET COUNT 374 K/MM3 (134-434); RBC 4.34 M/mm3 (3.60-5.2); RDW 13.9 % (11.6-15.6); WHITE BLOOD COUNT 8.5 K/mm3 (4.0-10.0)
--- NOTE | 2018-05-18 14:02 | PN ---
BHS COWS - Scale Resting Pulse: 0= [place] 80 or Below Sweatin= Chills/Flushing Restless Observation: 1= Difficult to Sit Still Pupil Size: 1= Pupils >than Normal Bone or Joint Aches: 2= Severe Diffuse Aches Runny Nose/ Eye Tearin= Nasal Congestion GI Upset > 30mins: 1= Stomach Cramp Tremor Observation of Outstretched Hands: 2= Slight Tremor Visible Yawning Observation: 1= 1-2x During Session Anxiety or Irritability: 1=Feels Anxious/Irritable Goose Flesh Skin: 0=Smooth Skin COWS Score: 11 BHS Progress Note (SOAP) Subjective: longest sobriety 8 months joints pain body aches sweat tremor Objective: 05/18/18 14:00 Vital Signs Temperature 98.1 F 05/18/18 09:45 Pulse Rate 73 05/18/18 09:45 Respiratory Rate 18 05/18/18 09:45 Blood Pressure 93/60 05/18/18 09:45 O2 Sat by Pulse Oximetry (%) Laboratory Last Values WBC 8.5 K/mm3 (4.0-10.0) 05/18/18 07:30 RBC 4.34 M/mm3 (3.60-5.2) 05/18/18 07:30 Hgb 12.1 GM/dL (10.7-15.3) 05/18/18 07:30 Hct 37.3 % (32.4-45.2) 05/18/18 07:30 MCV 86.1 fl (80-96) 05/18/18 07:30 MCH 27.9 pg (25.7-33.7) 05/18/18 07:30 MCHC 32.5 g/dl (32.0-36.0) 05/18/18 07:30 RDW 13.9 % (11.6-15.6) 05/18/18 07:30 Plt Count 374 K/MM3 (134-434) D 05/18/18 07:30 MPV 6.7 fl (7.5-11.1) L D 05/18/18 07:30 Sodium 140 mmol/L (136-145) 05/18/18 07:30 Potassium 4.4 mmol/L (3.5-5.1) 05/18/18 07:30 Chloride 105 mmol/L (98-107) 05/18/18 07:30 Carbon Dioxide 30 mmol/L (21-32) 05/18/18 07:30 Anion Gap 4 MMOL/L (8-16) L 05/18/18 07:30 BUN 13 mg/dL (7-18) 05/18/18 07:30 Creatinine 0.8 mg/dL (0.55-1.3) 05/18/18 07:30 Creat Clearance w eGFR > 60 (>60) 05/18/18 07:30 Random Glucose 87 mg/dL (74-106) 05/18/18 07:30 Calcium 8.7 mg/dL (8.5-10.1) 05/18/18 07:30 Total Bilirubin 0.2 mg/dL (0.2-1) 05/18/18 07:30 AST 17 U/L (15-37) 05/18/18 07:30 ALT 17 U/L (13-61) 05/18/18 07:30 Alkaline Phosphatase 78 U/L (45-117) 05/18/18 07:30 Total Protein 6.5 g/dl (6.4-8.2) 05/18/18 07:30 Albumin 3.0 g/dl (3.4-5.0) L 05/18/18 07:30 Urine Color Yellow 05/17/18 23:31 Urine Appearance Cloudy 05/17/18 23:31 Urine pH 6.0 (5.0-8.0) 05/17/18 23:31 Ur Specific [place] 1.019 (1.010-1.035) 05/17/18 23:31 Urine Protein Negative (NEGATIVE) 05/17/18 23:31 Urine Glucose (UA) Negative (NEGATIVE) 05/17/18 23:31 Urine Ketones Negative (NEGATIVE) 05/17/18 23:31 Urine Blood Negative (NEGATIVE) 05/17/18 23:31 Urine Nitrite Negative (NEGATIVE) 05/17/18 23:31 Urine Bilirubin Negative (<2.0 mg/dL) 05/17/18 23:31 Urine Urobilinogen Negative mg/dL (0.2-1.0) 05/17/18 23:31 Ur Leukocyte Esterase Negative (NEGATIVE) 05/17/18 23:31 RPR Titer Nonreactive (NONREACTIVE) 05/18/18 07:30 lab noted Assessment: 05/18/18 14:01 withdrawal sx Plan: continue detox
--- NOTE | 2018-05-18 19:23 | EKG ---
Test Reason : Blood Pressure : / mmHG Vent. Rate : 080 BPM Atrial Rate : 080 BPM P-R Int : 142 ms QRS Dur : 080 ms QT Int : 378 ms P-R-T Axes : 043 035 028 degrees QTc Int : 435 ms NORMAL SINUS RHYTHM NORMAL ECG WHEN COMPARED WITH ECG OF 07-NOV-2017 20:07, QT HAS LENGTHENED Confirmed by MITCHEL ALANIS MD ([id number]) on 05/18/2018 7:22:37 PM Referred By: Mary Alicea Confirmed By:MITCHEL ALANIS MD
[2018-05-18] MEDS: CYCLOBENZAPRINE HCL 10 MG TABLET (FP) PO PRN (22:29)
[2018-05-18] MEDS: THIAMINE HCL 100 MG TABLET (FP) PO SCH (22:30)
[2018-05-18] MEDS: MELATONIN 5 MG TABLETS PO PRN (22:30)
[2018-05-19] MEDS ORDERED: METHADONE HCL 5 MG TABLET (FOR DETOX USE ONLY) PO ONE (10:00)
[2018-05-19] MEDS: diazePAM 5 MG TABLET PO PRN ×3 (10:16→22:17)
[2018-05-19] MEDS: cloNIDine HCL 0.1 MG TABLET PO SCH ×2 (10:17→22:15)
[2018-05-19] MEDS: PRENATAL VITAMINS W/ FOLIC ACID TABLET (FP) PO SCH (10:18)
[2018-05-19] MEDS: NICOTINE 21 MG/24 HOURS TOPICAL PATCH TD SCH (10:18)
--- NOTE | 2018-05-19 10:29 | PN ---
[facility] COWS - Scale Resting Pulse: 2= RI 101-120 Sweatin=Flushed/Facial Moisture Restless Observation: 1= Difficult to Sit Still Pupil Size: 0= Normal to Room Light Bone or Joint Aches: 1= Mild Discomfort Runny Nose/ Eye Tearin= Nasal Congestion GI Upset > 30mins: 0= None Tremor Observation of Outstretched Hands: 1= Tremor Brady, Not Seen Yawning Observation: 2= >3x During Session Anxiety or Irritability: 1=Feels Anxious/Irritable Goose Flesh Skin: 0=Smooth Skin COWS Score: 11 S Progress Note (SOAP) Subjective: agitation sweats chills mild shakes interrupted sleep Objective: 05/19/18 10:28 Vital Signs Temperature 97.7 F 05/19/18 09:46 Pulse Rate 103 H 05/19/18 09:46 Respiratory Rate 16 05/19/18 09:46 Blood Pressure 114/59 L 05/19/18 09:46 O2 Sat by Pulse Oximetry (%) Laboratory Tests 05/17/18 05/18/18 05/18/18 23:31 07:30 07:30 WBC 8.5 RBC 4.34 Hgb 12.1 Hct 37.3 MCV 86.1 MCH 27.9 MCHC 32.5 RDW 13.9 Plt Count 374 D MPV 6.7 L D Sodium 140 Potassium 4.4 Chloride 105 Carbon Dioxide 30 Anion Gap 4 L BUN 13 Creatinine 0.8 Creat Clearance w eGFR > 60 Random Glucose 87 Calcium 8.7 Total Bilirubin 0.2 AST 17 ALT 17 Alkaline Phosphatase 78 Total Protein 6.5 Albumin 3.0 L Urine Color Yellow Urine Appearance Cloudy Urine pH 6.0 Ur Specific [place] 1.019 Urine Protein Negative Urine Glucose (UA) Negative Urine Ketones Negative Urine Blood Negative Urine Nitrite Negative Urine Bilirubin Negative Urine Urobilinogen Negative Ur Leukocyte Esterase Negative RPR Titer 05/18/18 07:30 WBC RBC Hgb Hct MCV MCH MCHC RDW Plt Count MPV Sodium Potassium Chloride Carbon Dioxide Anion Gap BUN Creatinine Creat Clearance w eGFR Random Glucose Calcium Total Bilirubin AST ALT Alkaline Phosphatase Total Protein Albumin Urine Color Urine Appearance Urine pH Ur Specific [place] Urine Protein Urine Glucose (UA) Urine Ketones Urine Blood Urine Nitrite Urine Bilirubin Urine Urobilinogen Ur Leukocyte Esterase RPR Titer Nonreactive aaox3 ambulating no acute distress Assessment: 05/19/18 10:28 withdrawal sx Plan: continue detox increase fluids labs pending
[2018-05-19] MEDS: CYCLOBENZAPRINE HCL 10 MG TABLET (FP) PO PRN (22:15)
[2018-05-19] MEDS: THIAMINE HCL 100 MG TABLET (FP) PO SCH (22:15)
[2018-05-20] MEDS ORDERED: METHADONE HCL 5 MG TABLET (FOR DETOX USE ONLY) PO ONE (10:00)
[2018-05-20] MEDS: PRENATAL VITAMINS W/ FOLIC ACID TABLET (FP) PO SCH (10:22)
[2018-05-20] MEDS: NICOTINE 21 MG/24 HOURS TOPICAL PATCH TD SCH (10:23)
[2018-05-20] MEDS: cloNIDine HCL 0.1 MG TABLET PO SCH (10:23)
--- NOTE | 2018-05-20 10:42 | PN ---
[facility] Progress Note (SOAP) Subjective: hot/cold chills little sweats Objective: 05/20/18 10:40 Vital Signs Temperature 97.9 F 05/20/18 09:40 Pulse Rate 89 05/20/18 09:40 Respiratory Rate 16 05/20/18 09:40 Blood Pressure 90/55 L 05/20/18 09:40 O2 Sat by Pulse Oximetry (%) clonidine 0.1mg d/c aaox3 ambulating no acute distress continue to monitor BP Assessment: 05/20/18 10:41 mild withdrawal sx Plan: continue detox increase fluids
[2018-05-20] MEDS: diazePAM 5 MG TABLET PO PRN (17:29)
[2018-05-20] MEDS: hydrOXYzine PAMOATE 25 MG CAPSULE (FP) PO PRN (22:23)
[2018-05-20] MEDS: MELATONIN 5 MG TABLETS PO PRN (22:23)
[2018-05-20] MEDS: THIAMINE HCL 100 MG TABLET (FP) PO SCH (22:23)
[2018-05-20] MEDS: CYCLOBENZAPRINE HCL 10 MG TABLET (FP) PO PRN (22:23)
[2018-05-21] MEDS ORDERED: METHADONE HCL 10 MG TABLET (FOR DETOX USE ONLY) PO ONE (10:00)
[2018-05-21] MEDS: PRENATAL VITAMINS W/ FOLIC ACID TABLET (FP) PO SCH (10:12)
[2018-05-21] MEDS: NICOTINE 21 MG/24 HOURS TOPICAL PATCH TD SCH (10:12)
[2018-05-21] MEDS: hydrOXYzine PAMOATE 25 MG CAPSULE (FP) PO PRN ×2 (10:14→22:22)
--- NOTE | 2018-05-21 11:35 | PN ---
[facility] Progress Note (SOAP) Subjective: chills anxiety Objective: 05/21/18 11:37 Vital Signs Temperature 97.3 F L 05/21/18 10:04 Pulse Rate 102 H 05/21/18 10:04 Respiratory Rate 18 05/21/18 10:04 Blood Pressure 110/63 05/21/18 10:04 O2 Sat by Pulse Oximetry (%) aaox3 ambulating no acute distress Assessment: 05/21/18 11:37 mild withdrawal sx Plan: continue detox increase fluids d/c in am
[2018-05-21] MEDS: CYCLOBENZAPRINE HCL 10 MG TABLET (FP) PO PRN (22:22)
[2018-05-21] MEDS: THIAMINE HCL 100 MG TABLET (FP) PO SCH (22:22)
[2018-05-21] MEDS: MELATONIN 5 MG TABLETS PO PRN (22:22)
[2018-05-22] MEDS ORDERED: METHADONE HCL 5 MG TABLET (FOR DETOX USE ONLY) PO ONE (06:00)
--- NOTE | 2018-05-22 08:39 | DS ---
[facility] Detox Discharge Summary Admission Date: 05/17/18 Discharge Date: 05/22/18 - History Present History: Cocaine Dependence, Opioid Dependence - Physical Exam Results Vital Signs: Vital Signs Temperature 97 F L 05/22/18 07:19 Pulse Rate 65 05/22/18 07:19 Respiratory Rate 16 05/22/18 07:19 Blood Pressure 98/52 L 05/22/18 07:19 O2 Sat by Pulse Oximetry (%) - Treatment Hospital Course: Detox Protocol Followed, Detoxed Safely, Responded well, Discharged Condition Good, Rehab Referral Accepted - Medication Discharge Medications: Ambulatory Orders Ciprofloxacin HCl [Cipro] 250 mg PO BID 3 Days #6 tablet 11/10/17 Ciprofloxacin [Cipro -] 500 mg PO BID 3 Days #6 tablet 11/10/17 - Diagnosis (1) Cocaine abuse Current Visit: Yes Status: Chronic (2) Dehydration Current Visit: No Status: Acute (3) Insomnia Current Visit: No Status: Acute Qualifiers: Insomnia type: unspecified Qualified Code(s): G47.00 - Insomnia, unspecified (4) Opioid dependence with uncomplicated intoxication Current Visit: Yes Status: Chronic (5) Opioid dependence with withdrawal Current Visit: Yes Status: Chronic (6) UTI (urinary tract infection) Current Visit: Yes Status: Chronic (7) Weight loss Current Visit: No Status: Acute (8) Depression (emotion) Current Visit: Yes Status: Chronic Qualifiers: Depression Type: dysthymia Qualified Code(s): F34.1 - Dysthymic disorder (9) Nicotine dependence Current Visit: Yes Status: Chronic Qualifiers: Nicotine product type: cigarettes Substance use status: uncomplicated Qualified Code(s): F17.210 - Nicotine dependence, cigarettes, uncomplicated (10) PCOS (polycystic ovarian syndrome) Current Visit: No Status: Chronic (11) Drug-induced mood disorder Current Visit: No Status: Suspected - AMA Did Patient Leave Against Medical Advice: No ([facility])
[2018-05-22 09:35] VITALS: BP 98/73; PULSE 94; TEMP 97.3
== END 2018-05-22 08:38 | disposition home or self-care (01) | DRG 773 ==
LOC: YASAS 16:59 → Y6N 20:44
PROC: HZ2ZZZZ Detoxification Services for Substance Abuse Treatment (ICD-10-PCS; principal; 2018-05-17)
DX: F11.23 Opioid dependence with withdrawal (principal); F14.10 Cocaine abuse, uncomplicated; F17.210 Nicotine dependence, cigarettes, uncomplicated; F19.24 Other psychoactive substance dependence with psychoactive substance-induced mood disorder; F34.1 Dysthymic disorder; F41.9 Anxiety disorder, unspecified; G47.00 Insomnia, unspecified; E86.0 Dehydration; N39.0 Urinary tract infection, site not specified; E28.2 Polycystic ovarian syndrome; R63.4 Abnormal weight loss; Z68.20 Body mass index [BMI] 20.0-20.9, adult
CPT/HCPCS: 36415; 80053; 81003; 85027; 86593; 93005; 93010; J0735